=== PATIENT | female | born 1980 | race Caucasian/White ===

== ENCOUNTER 2019-09-15 13:16 | Emergency (ER) | payer SELFPAY ==
[2019-09-15 13:32] VITALS: BP 113/67; PULSE 78; RESP 16; TEMP 36.6; O2SAT 98
--- NOTE | 2019-09-15 14:08 | ED.FEMALEGU ---
HPI - Female Genitourinary General Chief complaint: Urogenital-Female Stated complaint: UTI Time Seen by Provider: 09/15/19 14:09 Source: patient and RN notes reviewed Mode of arrival: ambulatory Limitations: no limitations History of Present Illness HPI Narrative: 39-year-old female who presents to [facility] care with complaints of 2-day duration of urinary pain and frequency with pressure to perineum area. Patient also states that she has dental pain to lower right gum #27 tooth with all remaining teeth in lower gums noted to be dark with decay. Patient states that she has had a history of UTI's in the past, denies any CVA tenderness, no fevers, chills, or sweats, no nausea or vomiting or any acute abdominal pain.Patient denies any vaginal discharge or itching, has had tubal ligation. Patient states that she recently got upper dentures that she paid martinez for and states that she is unable to get into dentist for 1 month. MD elicited complaint: dysuria, UTI and other (perineal discomfort, also complaints of dental pain to right lower #27 tooth ) Pertinent past history: recurrent UTIs and other (dental caries) Onset (ago): day(s) (2) Location of symptoms: perineum Severity: moderate Female Urogenital Radiation: Non-Radiating Severity scale (1-10): 5 Quality of pain: aching Consistency: constant Vaginal discharge: none Vaginal bleeding: none Urinary symptoms: Dysuria and Urgency Exacerbating factors: none Relieving factors: none Treatment prior to arrival: none Related Data Allergies Allergy/AdvReac Type Severity Reaction Status Date / Time naproxen Allergy Mild Unverified 12/05/18 22:17 Penicillins Allergy Mild SICK Verified 12/05/18 22:17 CODIENE Allergy Unknown THROAT Uncoded 05/16/15 00:18 JOSE A Review of Systems Review of Systems: All systems reviewed & are unremarkable except as noted in HPI and below Constitutional: Constitutional: Reports as per HPI and Reports no additional constitutional complaints Eyes: Eyes: Reports as per HPI and Reports no additional eye complaints ENT: Reports system reviewed and no additional complaints, except as documented and Reports as per HPI Comments: #27 dental caries and red swollen gums with dental pain Cardiovascular: Cardiovascular: Reports as per HPI and Reports no additional cardiovascular complaints Respiratory: Respiratory: Reports as per HPI and Reports no additional respiratory complaints Gastrointestinal: Gastrointestinal: Reports as per HPI and Reports no additional gastrointestinal complaints Genitourinary: Genitourinary: Reports no additional female genitourinary complaints, Reports as per HPI, Reports nocturia and Reports dysuria Comments: Denies any CVA tenderness, pain and pressure to perineal area Musculoskeletal: Musculoskeletal: Reports no additional musculoskeletal complaints and Reports as per HPI Integumentary/Breasts: Skin/Breast: Reports system reviewed and no additional complaints, except as docu and Reports as per HPI Neurologic: Reports system reviewed and no additional complaints, except as documented and Reports as per HPI Psychiatric: Psychiatric: Reports no additional psychiatric complaints, Reports as per HPI, Reports anxiety and Reports depression Endocrine: Endocrine: Reports no additional endocrine complaints and Reports as per HPI Hematologic/Lymphatic: Hematologic/Lymphatic: Reports no additional hematologic/lymphatic complaints and Reports as per HPI Allergic/Immunologic: Allergic/Immunologic: Reports no additional allergic/immunologic complaints and Reports as per HPI PMFSH Past Medical History Medical History (Updated 09/17/19 @ 10:51 by Nette Mao NP) Bipolar 1 disorder Fracture of shaft of right femur Hepatitis C Surgical History Surgical History (Updated 09/17/19 @ 10:39 by Nette Mao NP) Previous section Tubal ligation status Social History Social History (Updated 09/17/19 @ 10:40 by Nette Bianchi
== END 2019-09-15 14:32 | disposition home or self-care (01) ==
PROVIDERS: Emergency Provider Registered Nurse
DX: K04.7 Periapical abscess without sinus (principal); N39.0 Urinary tract infection, site not specified; F17.210 Nicotine dependence, cigarettes, uncomplicated; Z86.19 Personal history of other infectious and parasitic diseases
CPT/HCPCS: 81003; 87077; 87086; 87088; 87186; 99213; G0463

== ENCOUNTER 2021-01-11 13:34 | Emergency (ER) | payer OTHER, SELFPAY ==
--- NOTE | 2021-01-11 14:36 | ED.GENADULT ---
HPI - General Adult General Chief complaint: Urogenital-Female Stated complaint: uti Source: patient Mode of arrival: ambulatory Limitations: no limitations History of Present Illness HPI narrative: Patient presents for evaluation of urinary symptoms for the last day. She reports urinary frequency and pressure in vaginal region at the end of urinary stream. She denies any fever, chills, nausea, vomiting, abdominal pain, low back pain, vaginal bleeding or discharge. LMP 1 week ago. Denies any vaginal bleeding or discharge. Surgical history positive for x3 and tubal ligation. States she has a history of recurrent urinary tract infections and current symptoms are consistent with those previously experienced with urinary tract infections. History of heroin abuse, previously sober but relapsed for 1 day a week ago. Back on methadone therapy with 100mg taken daily. No additional complaints or concerns. Related Data Home Medications Medication Instructions Recorded Confirmed methadone 01/11/21 Allergies Allergy/AdvReac Type Severity Reaction Status Date / Time naproxen Allergy Mild Verified 01/11/21 14:33 Penicillins Allergy Mild SICK Verified 01/11/21 14:33 CODIENE Allergy Unknown THROAT Uncoded 01/11/21 14:33 JOSE A Review of Systems Review of Systems: Narrative: CONSTITUTIONAL: Denies fever, chills, or sweats. EYES: Denies visual changes, redness, or discharge. ENT: Denies rhinorrhea, congestion, sore throat, or otalgia. CARDIOVASCULAR: Denies chest pain, palpitations, or edema. RESPIRATORY: Denies cough or dyspnea. GASTROINTESTINAL: Denies abdominal pain, nausea, vomiting, or diarrhea. GENITOURINARY: Reports urinary frequency and vaginal pressure at the end of urinary stream. Denies dysuria, hesitancy, hematuria SKIN: Denies rash or itching. MUSCULOSKELETAL: Denies back pain, joint pain, or myalgia. NEUROLOGIC: Denies headache, numbness, dizziness, or weakness. PSYCHIATRIC: Denies anxiety or depression. [facility] Past Medical History Medical History Bipolar 1 disorder Fracture of shaft of right femur Hepatitis C Heroin abuse Surgical History Surgical History Previous section Tubal ligation status Family History Family History Mother Unknown family medical history Social History Social History Smoking packs per day: 1 Smoking cigarettes per day: 20.0 Smoking status: Current every day smoker Tobacco type: cigarettes Alcohol intake: current Alcohol use details: socially Substance use: former Substance use type: marijuana and heroin Gender identity (if verbalized by the patient): Female Spiritual care concerns: No Exam Narrative: Exam Narrative: GENERAL: Well-appearing, well-nourished, and in no acute distress. HEAD: Normocephalic, atraumatic. EYES: PERRLA and EOMI. ENT: Nares clear, no rhinorrhea or epistaxis. Mucous membranes moist. Oropharynx without tonsillar hypertrophy exudate or other lesions. Bilateral TMs pearly woo nonbulging NECK: Supple. No adenopathy or masses. No carotid bruits or JVD CHEST: Clear to auscultation. No respiratory distress. No wheezes rales or rhonchi HEART: Regular rate and rhythm. No murmur heard. Normal peripheral pulses. ABDOMEN: Soft, nontender, nondistended, normal active bowel sounds. EXTREMITIES: Normal range of motion. No edema. SKIN: Warm, dry, no rash. NEURO: No focal deficits. Alert and oriented x3. PSYCH: Normal mood and affect. Course Course Emergency Course: This is a 40-year-old female who presents with 1 day history of urinary symptoms. not performed as she has a hx of tubal ligation. Urine positive for leukocytes. Will dc with bactrim. Advised close fol
[2021-01-11 14:39] VITALS: BP 108/76; PULSE 71; RESP 16; TEMP 36.1; O2SAT 97
== END 2021-01-11 14:50 | disposition home or self-care (01) ==
PROVIDERS: Emergency Provider Nurse Practitioner
DX: N30.00 Acute cystitis without hematuria (principal); F17.210 Nicotine dependence, cigarettes, uncomplicated; Z86.19 Personal history of other infectious and parasitic diseases
CPT/HCPCS: 81003; 87077; 87086; 87088; 87186; 99213; G0463

== ENCOUNTER 2021-03-01 08:27 | Emergency (ER) | payer OTHER, SELFPAY ==
--- NOTE | ~2021-03-01 | XR_ITS ---
. EXAMINATION: XR chest 2V EXAM DATE: 03/01/2021 08:52 INDICATION: Productive cough x 4 days smoker. TECHNIQUE: Frontal and lateral projections of the chest obtained and reviewed. There is no prior carlos dy for comparison. FINDINGS: Small amount of ill-defined lingular airspace disease identified on frontal and lateral pro jections, could be developing pneumonia. Although airspace disease is most consistent with pneumonia, a followup chest x-ray in 3-4 weeks, and to resolution, should be obtained to exclude possibility of underlying cancer. Lungs have mild to moderate hyperinflation. There is no pneumothorax suspected. T here are no pleural effusions. Cardiomediastinal silhouette is normal. There are no osseous abnormali ties identified. IMPRESSION: Small amount of left basilar airspace disease probably developing pneumonia but follow-up recommendation above. Reviewed, dictated and finalized at location B. IMPRESSION: Small amount of left basilar airspace disease probably developing p neumonia but follow-up recommendation above.
[2021-03-01 08:36] VITALS: BP 110/77; PULSE 83; RESP 16; TEMP 36.3; O2SAT 98
--- NOTE | 2021-03-01 08:37 | ED.URI ---
HPI - URI/Sore Throat General Chief Complaint: Upper Respiratory Infection Stated Complaint: Cough,Congestion Time Seen by Provider: 03/01/21 08:37 Source: patient and RN notes reviewed Mode of arrival: ambulatory Limitations: no limitations History of Present Illness HPI Narrative: 40-year-old female presents to the [facility] with complaints of a cough for the last 4 days. Patient appears acutely ill. Had tried some [id number] products with no relief. Patient denies fevers however she is complaining of some productive cough, green. Shortness of breath. Denies chest pain. Related Data Allergies Allergy/AdvReac Type Severity Reaction Status Date / Time naproxen Allergy Mild Rash Verified 03/01/21 08:45 Penicillins Allergy Mild Rash Verified 03/01/21 08:45 CODIENE Allergy Unknown THROAT Uncoded 01/11/21 14:33 JOSE A Review of Systems Review of Systems: All systems reviewed & are unremarkable except as noted in HPI and below Constitutional: Constitutional: Reports no additional constitutional complaints Eyes: Eyes: Reports no additional eye complaints ENT: Reports as per HPI, Reports nasal congestion and Denies sore throat Cardiovascular: Cardiovascular: Reports no additional cardiovascular complaints and Denies chest pain Respiratory: Respiratory: Reports as per HPI, Reports chest congestion, Reports dyspnea and Reports wheezing Gastrointestinal: Gastrointestinal: Reports no additional gastrointestinal complaints, Denies abdominal pain, Denies nausea and Denies vomiting Musculoskeletal: Musculoskeletal: Reports no additional musculoskeletal complaints Integumentary/Breasts: Skin/Breast: Reports system reviewed and no additional complaints, except as docu Neurologic: Reports system reviewed and no additional complaints, except as documented Allergic/Immunologic: Allergic/Immunologic: Reports no additional allergic/immunologic complaints, Denies lip swelling, Denies throat swelling and Denies tongue swelling PMFSH Past Medical History Medical History Bipolar 1 disorder Fracture of shaft of right femur Hepatitis C Heroin abuse Surgical History Surgical History Previous section Tubal ligation status Family History Family History Mother Unknown family medical history Social History Social History Smoking packs per day: 1 Smoking cigarettes per day: 20.0 Smoking status: Current every day smoker Tobacco type: cigarettes Alcohol intake: current Alcohol use details: socially Substance use: former Substance use type: marijuana and heroin Gender identity (if verbalized by the patient): Female Spiritual care concerns: No Comments At the time of my signature, I reviewed and agree with the nursing past medical, surgical, social, and family history. There is no relevant family history pertinent to the patient complaint. Exam Const: General: alert and ill appearing acutely Nutritional Appearance: thin Orientation/consciousness: patient oriented x3 Limitations: no limitations HENMT: Head: normal to inspection Ears: hearing grossly normal bilaterally, external ears normal, TM's normal bilaterally and EAC's normal General nose exam: Abnormal mucous membranes and turbinates present boggy and erythematous and Nasal discharge present mucoid Face and sinus: normal facial exam Mouth: Yes lip normal and Yes tongue normal Teeth and gingiva: gingiva abnormal receding and poor dentition Throat: posterior oropharynx normal, uvula midline and postnasal drainage Eyes: Conjunctivae: conjunctivae normal Pupils: Equal, round and reactive pupils present Neck: Neck: normal visual inspection, no lymphadenopathy and no meningeal signs Chest: Chest palpation & inspection: normal inspection of the
[2021-03-01 08:45] VITALS: BP 110/77; PULSE 83; RESP 16; TEMP 36.3; O2SAT 98
[2021-03-01] MEDS: ALBUTEROL SULFATE NEB 2.5 MG/3 ML INH INHALATION (08:53)
[2021-03-01] MEDS: IPRATROPIUM BR 0.02% INH SOLN 0.5 MG/2.5 ML VIAL INHALATION (08:54)
--- NOTE | 2021-03-01 09:20 | PC.NURSE ---
at 0910 was continuing resp tx. stated already feeling better.
--- NOTE | 2021-03-01 09:37 | PC.NURSE ---
0934 braille teacher in to reassess and discuss results.
--- NOTE | 2021-03-01 09:38 | PC.NURSE ---
0929 resp tx completed and resting laying back and stated is feeling better.
[2021-03-01 09:47] VITALS: PULSE 77; RESP 18; O2SAT 98
== END 2021-03-01 09:47 | disposition home or self-care (01) ==
PROVIDERS: Emergency Provider Nurse Practitioner
DX: J18.1 Lobar pneumonia, unspecified organism (principal); F17.210 Nicotine dependence, cigarettes, uncomplicated
CPT/HCPCS: 71046; 94640; 99213; G0463

== ENCOUNTER 2021-04-03 04:56 | Emergency (ER) | payer OTHER, SELFPAY ==
[2021-04-03 04:59] VITALS: BP 138/103; PULSE 101; RESP 20; TEMP 37.1; O2SAT 99
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
--- NOTE | 2021-04-03 05:36 | PC.NURSE ---
Patient seen leaving department with her visitor. Patient's belongings not in room and gown on stretcher. Patient left ED and seen getting into a car with her visitor at 0538.
== END 2021-04-03 05:40 | disposition left against medical advice (07) ==
LOC: ANHED 05:20
PROVIDERS: Emergency Provider Emergency Medicine
DX: T14.90XA Injury, unspecified, initial encounter (principal); Y04.2XXA Assault by strike against or bumped into by another person, initial encounter; Y03.0XXA Assault by being hit or run over by motor vehicle, initial encounter
CPT/HCPCS: 99282

== ENCOUNTER 2021-04-09 13:54 | Emergency (ER) | payer OTHER, SELFPAY ==
--- NOTE | ~2021-04-09 | XR_ITS ---
EXAMINATION: XR cervical spine 4-5V, XR lumbar spine 2-3V, XR thoracic spine 3V DATE: 04/09/2021 15:44 INDICATION: Neck pain TECHNIQUE: 1. AP, lateral, lateral swimmers and odontoid views of the cervical spine were obtained. 2. AP, lateral and lateral swimmers views of the thoracic spine were obtained. 3. AP, lateral and cone-down lateral lumbosacral views of the lumbar spine were obtained. COMPARISON: None FINDINGS: Cervical spine: Mild lower cervical dextrocurvature. Straightening of the normal cervical lordosis which could be pos itional or due to muscle spasm. No spondylolisthesis or facet subluxation. Dens is intact with normal atlantoaxial interval. Vertebral body heights are normal. Mild disc height loss at C5-C6 with mild r ight-sided and moderate left-sided uncovertebral osteoarthritis. Remaining cervical disc spaces are r elatively preserved with additional scattered uncovertebral osteoarthritis. There is also bilateral m ild multilevel cervical facet osteoarthritis. No fracture identified. Prevertebral soft tissues are n ormal. Thoracic spine: 13 degree levoscoliosis measured between T3 and T5. Sagittal alignment is normal. Vertebral body heig hts are normal. Moderate disc height loss with mild degenerative endplate changes at T3-T4 through T5 -T6 and at T7-T8. Mild disc height loss at the remaining thoracic levels. No fracture identified. Par avertebral soft tissues and visualized lungs are unremarkable. Heart size is normal. Lumbar spine: Alignment is normal. Vertebral body heights are normal. Mild disc height loss at L5-S1. Sacral arches are intact. No fractures identified. Mild right sacroiliac osteoarthritis. IMPRESSION: 1. No evident acute osseous abnormality. 2. Mild upper thoracic levoscoliosis with mild to moderate thoracic spondylosis. 3. Mild cervical and mild lumbar spondylosis. Reviewed, dictated and finalized at location A. IMPRESSION: 1. No evident acute osseous abnormality. 2. Mild upper thoracic levoscoliosis with mild to moderate thoracic spondylosis . 3. Mild cervical and mild lumbar spondylosis. IMPRESSION: 1. No evident acute osseous abnormality. 2. Mild upper thoracic levoscoliosis with mild to moderate thoracic spondylosis . 3. Mild cervical and mild lumbar spondylosis.
[2021-04-09 14:10] VITALS: BP 109/77; PULSE 90; RESP 16; TEMP 36.2; O2SAT 100
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
== END 2021-04-09 16:48 | disposition home or self-care (01) ==
PROVIDERS: Emergency Provider Nurse Practitioner
DX: S16.1XXA Strain of muscle, fascia and tendon at neck level, initial encounter (principal); V49.9XXA Car occupant (driver) (passenger) injured in unspecified traffic accident, initial encounter; F17.210 Nicotine dependence, cigarettes, uncomplicated; Z86.19 Personal history of other infectious and parasitic diseases
CPT/HCPCS: 72050; 72072; 72100; 99214; G0463

== ENCOUNTER 2022-02-02 21:07 | Inpatient (IN) | payer OTHER, SELFPAY ==
--- NOTE | ~2022-02-02 | CT_ITS ---
EXAMINATION: CT LE LT wo con DATE: 02/03/2022 04:02 INDICATION: Left thigh swelling and numbness and pain. TECHNIQUE: Computed tomography (CT) of the left thigh was performed without intravenous contrast. Aut omated exposure control and iterative reconstruction technique were employed. The dose-length product was 1244.33 mGy-cm. COMPARISON: Left femur radiographs 02/02/2022 FINDINGS: Bone alignment is normal. No fracture. There is severe lower lumbar spondylosis. There is m oderate left hip osteoarthritis. There is fat stranding in the retroperitoneum and extraperitoneal pe lvis. There is low-attenuation in the left hip adductor muscles and gluteal muscles. There is subcuta neous edema and intramuscular edema in left thigh. IMPRESSION: 1. Low-attenuation in the left hip adductor muscles and gluteal muscles, consistent with rhabdomyolys is versus myositis. 2. Fat stranding in the retroperitoneum and extraperitoneal pelvis, consistent with edema versus infl ammation. Reviewed, dictated and finalized at location A. IMPRESSION: 1. Low-attenuation in the left hip adductor muscles and gluteal muscles, consis tent with rhabdomyolysis versus myositis. 2. Fat stranding in the retroperitoneum and extraperitoneal pelvis, consistent with edema versus inflammation.
--- NOTE | ~2022-02-02 | US_ITS ---
EXAMINATION: US venous doppler [facility] DATE: 02/03/2022 08:50 INDICATION: Left thigh swelling. TECHNIQUE: Grayscale ultrasound images without and with compression and Doppler ultrasound images of the left lower extremity veins were obtained. COMPARISON: None. FINDINGS: The visualized portions of left common femoral vein, profunda (deep) femoral vein, femoral vein, popl iteal vein, peroneal veins, posterior tibial veins, and greater saphenous vein outflow are patent. IMPRESSION: 1. No deep venous thrombosis. Reviewed, dictated and finalized at location A.
--- NOTE | ~2022-02-02 | US_ITS ---
US renal BI 02/03/2022 10:15 Procedure: Realtime transabdominal ultrasound of the kidneys and bladder. Indication: Acute renal insufficiency Comparison: No prior studies for comparison. Findings: Renal echotexture is normal bilaterally without hydronephrosis, contour deforming mass or r enal calculus. The right kidney measures 11 cm and left kidney measures 11.7 cm. Bladder is not well distended for evaluation. Impression: 1: Unremarkable renal ultrasound. No stones, masses or hydronephrosis. Reviewed, dictated and finalized at location B. Impression: 1: Unremarkable renal ultrasound. No stones, masses or hydronephrosis.
--- NOTE | ~2022-02-02 | XR_ITS ---
EXAMINATION: XR femur LT min 2V DATE: 02/02/2022 23:15 INDICATION: Left thigh edema. TECHNIQUE: 2 views of left femur on 4 radiographs were obtained. COMPARISON: None. FINDINGS: Bone alignment is normal. No fracture. There is moderate left hip osteoarthritis. IMPRESSION: 1. Moderate left hip osteoarthritis. Reviewed, dictated and finalized at location A.
--- NOTE | ~2022-02-02 | CT_ITS ---
EXAMINATION: CT femur LT wo con DATE: 02/06/2022 13:25 INDICATION: Left-sided presenting with worsening left thigh pain TECHNIQUE: High resolution computed tomography (CT) of the left thigh was performed without intraveno us contrast. Additional sagittal and coronal reconstructions were performed. Automated exposure contr ol and iterative reconstruction technique were employed. The dose-length product was 985.68 mGy-cm. COMPARISON: 02/03/2022 FINDINGS: Bone alignment is normal. No fracture. Severe spondylosis at the lumbosacral junction. Mild left hip osteoarthritis with no hip joint effusion. No significant change in extent of regions of decreased at tenuation in the abductor th and gluteal musculature about the left hip there is a thick consistent w ith rhabdomyolysis versus myositis. Also without significant interval changes stranding in the subcut aneous and intramuscular fat of the left thigh. Interval decrease in the amount of retroperitoneal st randing with presacral predominance. No evident soft tissue gas. IMPRESSION: 1. No interval change in right-sided geographic regions of decreased attenuation and multiple left hi p abductor and gluteal muscles most consistent with rhabdomyolysis versus myositis. Reviewed, dictated and finalized at location A. IMPRESSION: 1. No interval change in right-sided geographic regions of decreased attenuatio n and multiple left hip abductor and gluteal muscles most consistent with rhabd omyolysis versus myositis.
[2022-02-02 21:58] VITALS: BP 122/82; PULSE 84; RESP 18; TEMP 36.6; O2SAT 97
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
--- NOTE | 2022-02-02 23:45 | PC.NURSE ---
Pt has a hx of IV drug use. This RN, shipping technician Daina, and shipping technician Katie attempted blood draw with no success. Phlebotomy called at this time.
[2022-02-03] VITALS (8 sets, daily range): BP systolic 118–149; BP diastolic 75–98; PULSE 72–80; RESP 14–19; TEMP 36.2–36.6; O2SAT 100
--- NOTE | 2022-02-03 00:12 | PC.NURSE ---
Belongings at bedside. enava tech
[2022-02-03 00:37] LABS: Anion Gap 12 mmol/L (8-16); Blood Urea Nitrogen 91 mg/dL (7-17); CRP 1.7 mg/dL (<1.0); Calcium 8.9 mg/dL (8.4-10.2); Carbon Dioxide 23 mmol/L (22-30); Chloride 93 mmol/L (98-107); Estimated CRCL calculation 8 ml/min; Estimated Glomerular Filt Rate 5; Glucose 137 mg/dL (65-110); Potassium 3.7 mmol/L (3.4-5.0); Sodium 128 mmol/L (137-145)
[2022-02-03 00:42] LABS: Prothrombin Time 13.1 Seconds (11.1-14.7)
[2022-02-03 00:55] LABS: Basophils Absolute Auto 0.1 K/mm3 (0.0-0.1); Basophils Percent Auto 0.5 % (0.2-1.2); Eosinophils Absolute Auto 0.2 K/mm3 (0-0.3); Eosinophils Percent Auto 1.3 % (0-4.4); Hematocrit 44.3 % (37.0-47.0); Hemoglobin 15.7 g/dL (12.0-15.0); Immature Granulocyte Absolute 0.09 K/mm3 (0.00-0.031); Immature Granulocyte Percent A 0.8 % (0-0.5); Lymphocytes Absolute Auto 1.64 K/mm3 (0.9-3.2); Lymphocytes Percent Auto 14.3 % (18.3-44.2); Mean Corpuscular HGB Conc 35.4 g/dl (32-36); Mean Corpuscular Hemoglobin 32.3 pg (26-34); Mean Corpuscular Volume 91.2 fl (80-100); Mean Platelet Volume 10.6 fl (7.4-10.4); Monocytes Percent Auto 8.6 % (2.6-8.5); Neutrophils Absolute Auto 8.5 K/mm3 (1.3-6.7); Neutrophils Percent Auto 74.5 % (45.5-73.1); Platelet Count Result 327 k/mm3 (150-375); Red Blood Count 4.86 M/mm3 (4.2-5.4); Red Cell Distribution Width 12.4 % (11.5-14.5); White Blood Count 11.5 K/mm3 (4.5-10.0)
[2022-02-03 00:57] LABS: D Dimer 6.47 ug/mL (<0.48)
--- NOTE | 2022-02-03 01:11 | PC.NURSE ---
EDP Sidney at bedside for IV placement
[2022-02-03 01:23] LABS: Appearance Urine Clear (Clear); Bilirubin Urine Negative (Negative); Blood Urine 2+ (Negative); Color Urine Yellow (Yellow); Glucose Urine UA Negative (Negative); Ketones Urine Negative (Negative); Leukocyte Esterase Ur Trace LEU/UL (Negative); Nitrate Urine Negative (Negative); Protein Urine Trace mg/dL (Negative); Specific Grav Ur 1.015 (1.001-1.035); Urobilinogen Urine 0.2 mg/dL (<2.0)
[2022-02-03 01:25] LABS: Alanine Aminotransferase 118 U/L (6-35); Albumin Level 3.8 g/dL (3.5-5.1); Alkaline Phosphatase 26 U/L (38-126); Aspartate Amino Transferase 162 U/L (14-36); Bilirubin,Total 0.5 mg/dL (0.2-1.3)
[2022-02-03 01:28] LABS: Bacteria Urine Trace /hpf; Mucus Urine Rare /lpf; Squamous Epithelial Cell Urine Few /hpf (Few)
[2022-02-03 01:29] LABS: Add Urine Microscopic? YES
[2022-02-03 01:36] LABS: Creatine Kinase 2494 U/L (30-135)
[2022-02-03 01:37] LABS: Barbiturate Screen Urine Negative (Negative); Benzodiazepines Screen Urine Negative (Negative)
[2022-02-03 02:05] LABS: Amphetamine Screen Urine Positive (Negative); Cannabinoid Screen Urine Negative (Negative); Cocaine Screen Urine Negative (Negative); Methadone Screen Urine Negative (Negative); Opiate Screen Urine Negative (Negative); Phencyclidine Screen Urine Negative (Negative)
[2022-02-03] MEDS: SODIUM CHLORIDE 0.9% IV 1,000 ML 999 ML IV CONT (02:23)
[2022-02-03] MEDS: ENOXAPARIN 80 MG/0.8 ML SYRINGE 70 MG SUB-Q (03:36)
[2022-02-03] MEDS: SODIUM CHLORIDE 0.9% IV 1,000 ML 500 ML IV CONT (03:39)
--- NOTE | 2022-02-03 03:47 | PC.NURSE ---
Pt to Ct at this time
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
--- NOTE | 2022-02-03 05:00 | ADMGEN ---
0435 This patient, Narciso Barnes, was admitted to [address] [facility] Surg Room 333-01. Patient/family oriented to hospital policies and general routines including ID bracelet, bed and alarms, visiting hours, pain management, procedures, bathroom and other care routines, personal items, smoking policy, room service/diet, and visiting hours. Information on how to activate the Rapid Response Team has been discussed. Patient/Family are encouraged to report perceived risks to care and to ask questions if they do not understand what they are told or what they should do.
[2022-02-03 08:06] LABS: Hematocrit 37.8 % (37.0-47.0); Hemoglobin 12.8 g/dL (12.0-15.0); Mean Corpuscular HGB Conc 33.9 g/dl (32-36); Mean Corpuscular Hemoglobin 31.8 pg (26-34); Mean Corpuscular Volume 93.8 fl (80-100); Mean Platelet Volume 9.9 fl (7.4-10.4); Platelet Count Result 277 k/mm3 (150-375); Red Blood Count 4.03 M/mm3 (4.2-5.4); Red Cell Distribution Width 12.7 % (11.5-14.5); White Blood Count 9.7 K/mm3 (4.5-10.0)
[2022-02-03 08:16] LABS: Alanine Aminotransferase 81 U/L (6-35); Albumin Level 2.9 g/dL (3.5-5.1); Alkaline Phosphatase 22 U/L (38-126); Anion Gap 7 mmol/L (8-16); Aspartate Amino Transferase 106 U/L (14-36); Bilirubin,Total 0.3 mg/dL (0.2-1.3); Blood Urea Nitrogen 81 mg/dL (7-17); Calcium 7.8 mg/dL (8.4-10.2); Carbon Dioxide 23 mmol/L (22-30); Chloride 101 mmol/L (98-107); Creatine Kinase 1404 U/L (30-135); Estimated CRCL calculation 9 ml/min; Estimated Glomerular Filt Rate 6; Glucose 105 mg/dL (65-110); Potassium 3.6 mmol/L (3.4-5.0); Sodium 131 mmol/L (137-145)
[2022-02-03] MEDS: BACLOFEN 10 MG TABLET PO ×2 (09:06→18:28)
[2022-02-03] MEDS: SODIUM CHLORIDE 0.9% IV 1,000 ML 150 ML IV CONT (09:06)
--- NOTE | 2022-02-03 12:21 | PM.CNNEP ---
Assessment and Plan Additional Plan 1. The patient has acute kidney injury. Her CPK was mildly elevated at 2494 yesterday but is down to 1404 today. Rhabdomyolysis is always a possibility. Perhaps she was passed out for a while and developed some muscle trauma. This may have peaked in the past and then ran its course and is decreasing now. She does have 2+ blood in the urine with very few red cells consistent with pigmenturia. Since there is still pigment in the urine, and the urine pH is only 5, I will give her bicarbonate in her IV fluids. She does have the swollen thigh. So compartment syndrome is a possibility but her CPK is lower so I doubt this. I will have surgery take a look at her just in case. Dehydration is a possibility as well. She is getting IV fluids. ATN is a possibility. Perhaps when she overdosed on the ketamine she had low blood pressure for a while leading to under perfusion and ATN. infection is a possibility. She does have some white cells in the urine. Her cultures are being processed. She has no fever or white count. 2. The patient has a swollen left thigh. Venous Dopplers negative. Consider compartment syndrome? Will have surgery see 3. Recreational drug use. Hopefully she will be able to stop again. History of Present Illness Reason for Consult Consult date: 02/03/22 Chief Complaint Chief complaint: Acute kidney failure, rhabdomyolysis History of Present Illness Narrative: Magy is a very pleasant 41-year-old lady who has chronic narcotic abuse. She had been clean for about 4 years but then in the last couple of weeks had a relapse. First she tried fentanyl. She took 1/4 of a pill and passed out. She was at a friend's house who happened to have Narcan and she received 3 injections of Narcan and was finally aroused. She stopped using Fentanyl at that point because she was scared of it but then started using meth. She had this a few times since the Fentanyl. About a week ago the patient developed swelling in her left thigh. There is no swelling in the ankle. This swelling gradually got worse over the last week. There is no bruising. She does not remember falling but admittedly she was under the effect of the recreational drug so it is not certain whether or not there was any trauma. She is able to walk but walks with a limp because of the pain in the thigh. She had some nausea and vomiting over the last week and also had some diarrhea. Had no fever. She does not take any prescription medications. She told me she was not taking any Advil Aleve ibuprofen or Motrin but at looks like she did have some ibuprofen at home. She says she is urinating normally. Her urine is clear/mildly yellow. No red urine and no dark brown urine. No pain with urination or hesitancy or slow stream. She has not been on antibiotics lately. Review of Systems Constitutional: Constitutional: Reports no additional constitutional complaints Eyes: Eyes: Reports no additional eye complaints ENT: Reports system reviewed and no additional complaints, except as documented Cardiovascular: Cardiovascular: Reports no additional cardiovascular complaints Respiratory: Respiratory: Reports no additional respiratory complaints Gastrointestinal: Gastrointestinal: Reports no additional gastrointestinal complaints Genitourinary: Genitourinary: Reports no additional female genitourinary complaints Musculoskeletal: Musculoskeletal: Reports no additional musculoskeletal complaints Integumentary/Breasts: Skin/Breast: Reports system reviewed and no additional complaints, except as docu Neurologic: Reports system reviewed and no additional complaints, except as documented Psychiatric: Psychiatric: Reports no additional psychiatric complaints Endocrine: Endocrine: Reports no additional endocrine complaints [facility] Past Medical History Medical History (Reviewed 02/03/22 @ 12:25 by Yaakov Hayes
--- NOTE | 2022-02-03 13:05 | PCCCNOTE ---
On 02/03/22, the student, [Beti Tovar], provided care and completed [facility] documentation on this patient. I have reviewed the student's documentation and agree with the findings.
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
[2022-02-03] MEDS: SODIUM BICARBONATE 8.4% 150 MEQ in DEXTROSE 5% 1,000 ML 950 ML 100 MEQ IV CONT (14:26)
[2022-02-04] MEDS: SODIUM BICARBONATE 8.4% 150 MEQ in DEXTROSE 5% 1,000 ML 950 ML 100 MEQ IV CONT ×2 (01:19→12:15)
[2022-02-04 01:37] LABS: Total Protein Urine Random 15 mg/dL; Ur Ttl Prot Creatinine Ratio 0.33 mg/mg (0-0.20)
[2022-02-04 01:47] LABS: Sodium Urine Random 47 meq/L
[2022-02-04 05:26] VITALS: BP 131/80; PULSE 75; RESP 16; TEMP 36.5; O2SAT 96
[2022-02-04 06:18] LABS: Basophils Percent Auto 0.5 % (0.2-1.2); Eosinophils Absolute Auto 0.1 K/mm3 (0-0.3); Eosinophils Percent Auto 1.3 % (0-4.4); Hematocrit 33.7 % (37.0-47.0); Hemoglobin 11.8 g/dL (12.0-15.0); Immature Granulocyte Absolute 0.07 K/mm3 (0.00-0.031); Immature Granulocyte Percent A 0.8 % (0-0.5); Lymphocytes Absolute Auto 1.72 K/mm3 (0.9-3.2); Lymphocytes Percent Auto 20.1 % (18.3-44.2); Mean Corpuscular Hemoglobin 31.8 pg (26-34); Mean Corpuscular Volume 90.8 fl (80-100); Mean Platelet Volume 10.3 fl (7.4-10.4); Monocytes Absolute Auto 0.9 K/mm3 (0.1-0.6); Monocytes Percent Auto 9.9 % (2.6-8.5); Neutrophils Absolute Auto 5.8 K/mm3 (1.3-6.7); Neutrophils Percent Auto 67.4 % (45.5-73.1); Platelet Count Result 266 k/mm3 (150-375); Red Blood Count 3.71 M/mm3 (4.2-5.4); Red Cell Distribution Width 12.5 % (11.5-14.5); White Blood Count 8.6 K/mm3 (4.5-10.0)
[2022-02-04 06:27] LABS: Albumin Level 2.9 g/dL (3.5-5.1); Anion Gap 6 mmol/L (8-16); Blood Urea Nitrogen 83 mg/dL (7-17); Carbon Dioxide 30 mmol/L (22-30); Chloride 99 mmol/L (98-107); Creatine Kinase 809 U/L (30-135); Estimated CRCL calculation 10 ml/min; Estimated Glomerular Filt Rate 7; Glucose 111 mg/dL (65-110); Phosphorus 4.8 mg/dL (2.5-4.5); Potassium 3.4 mmol/L (3.4-5.0); Sodium 135 mmol/L (137-145)
[2022-02-04 08:00] VITALS: PULSE 75; RESP 16; O2SAT 96
[2022-02-04] MEDS: ENOXAPARIN 30 MG/0.3 ML SYRINGE SUB-Q (09:40)
[2022-02-04] MEDS: BACLOFEN 10 MG TABLET PO ×2 (09:40→17:58)
--- NOTE | 2022-02-04 11:43 | PM.IMPN ---
Progress Note: A&P Assessment and Plan (1) Rhabdomyolysis: Qualifiers: Rhabdomyolysis type: non-traumatic Qualified Code(s): M62.82 - Rhabdomyolysis Code(s): M62.82 - Rhabdomyolysis Status: Acute Assessment and Plan: CK improved significantly from 1400-->800 (2) Acute kidney failure: Qualifiers: Acute renal failure type: unspecified Qualified Code(s): N17.9 - Acute kidney failure, unspecified Code(s): N17.9 - Acute kidney failure, unspecified Status: Acute Assessment and Plan: Creatinine at admission was 7.9, down to 6.6 today, sodium also improved indicating patient was in a hypovolemic state (3) Amphetamine abuse: Code(s): F15.10 - Other stimulant abuse, uncomplicated Status: Acute Assessment and Plan: Long discussion regarding rehab and discontinuing polysubstance abuse (4) Elevated d-dimer: Code(s): R79.89 - Other specified abnormal findings of blood chemistry Status: Acute Assessment and Plan: Likely secondary to the rhabdomyolysis, venous Dopplers were negative (5) Left thigh pain: Code(s): M79.652 - Pain in left thigh Status: Acute Assessment and Plan: Secondary to myositis versus rhabdomyolysis, appreciate Orthopedic surgery consultation, they have signed off, no compartment syndrome noted Subjective Date/time seen: 02/04/22 11:43 Interval history: Patient resting comfortably in bed, still complaining of significant left thigh pain and swelling. She denies any trauma to this leg. She states the swelling and pain seem little worse than when she came in yesterday. She denies any fevers or chills overnight events. She denies chest pain shortness a breath. No nausea vomiting or diarrhea. Review of Systems Review of Systems: Twelve point review of systems was reviewed and is negative except as noted in the HPI Exam Narrative: Weight 68.1 kg BMI 23.5 Const: Other: Appears older than stated age, disheveled, no acute distress, well-developed well-nourished HENMT: Other: Head is normocephalic atraumatic, pupils are equal and reactive, edentulous in the upper jaw, few remaining teeth that are black and broken off at the gumline in the lower jaw Eyes: Other: Pupils are equal and reactive, no scleral icterus, no conjunctival pallor Neck: Other: No anterior cervical or submandibular lymphadenopathy, no thyromegaly Chest: Other: No tenderness to palpation, equal expansion Resp: Other: Clear to auscultation bilaterally, no increased work of breathing Cardio: Other: Regular rate, regular rhythm, 2+ bilateral radial pedal pulses GI: Other: Soft, nontender, nondistended, positive bowel sounds, no organomegaly : Other: Normal external genitalia, tissue fullness and edema in the left groin Skin: Other: Generalized pallor, non jaundice, numerous tattoos across arms chest and down the right lateral thigh and leg Neuro: Other: Alert oriented, speech is clear, no facial asymmetry, no gross motor deficits noted on limited exam, decreased sensation over the anterior and medial left thigh down to about the level of the knee extending to the mid axillary line laterally Extrem: Other: Weakness on hip flexor on the left, generalized edema of the left anterior medial thigh with [id number] tenderness palpation of the medial thigh, no associated erythema or induration, no pitting edema of the lower extremity, no calf tenderness Psych: Other: Appropriate mood affect, pleasant and cooperative, judgment insight poor Objective Data Vital Signs Vital Signs: Vital Signs - 24 hr 02/03/22 14:00 02/03/22 22:00 02/04/22 05:26 Temperature 97.9 F 97.2 F L 97.7 F Pulse Rate 73 72 75 Respiratory Rate 19 16 16 Blood Pressure 120/77 118/75 131/80 Pulse Oximetry 100 100 96 Intake/Output Intake/Output: Intake & Output 02/01/22 02/02/22 02/03/22 02/04/22 23:59 23:59 23:59
--- NOTE | 2022-02-04 12:14 | PM.PNNEP ---
Progress Note: A&P Additional Plan 1. The patient has acute kidney injury. Urine electrolytes are non pre renal but she had already received lots of IV fluids before this was done. CK is down to 809. Urine culture is negative thanks to Dr. Briggs for evaluating her thigh. No sign of compartment syndrome. Her creatinine is improving with IV fluids. Most likely her renal insufficiency is due to dehydration and ATN. 2. The patient has a swollen left thigh. Venous Dopplers negative. I will let hospitalist proceed with this evaluation. 3. Recreational drug use. Hopefully she will be able to stop again. Subjective Date/time seen: 02/04/22 12:14 Interval history: [place] is feeling a little bit better today. Her left thigh still hurts. Review of Systems Cardiovascular: Cardiovascular: Reports no additional cardiovascular complaints Respiratory: Respiratory: Reports no additional respiratory complaints Gastrointestinal: Gastrointestinal: Reports no additional gastrointestinal complaints Genitourinary: Genitourinary: Reports no additional female genitourinary complaints Exam Narrative: WDWN in NAD skin no rash head ncat lungs clear cor reg no rub abd BS+ nontender and soft ext no edema Except some residual swelling in her left thigh. Objective Data Vital Signs Vital Signs: Vital Signs - 24 hr 02/03/22 14:00 02/03/22 22:00 02/04/22 05:26 Temperature 36.6 C 36.2 C L 36.5 C Pulse Rate 73 72 75 Respiratory Rate 19 16 16 Blood Pressure 120/77 118/75 131/80 Pulse Oximetry 100 100 96 Intake/Output Intake/Output: Intake & Output 02/01/22 02/02/22 02/03/22 02/04/22 23:59 23:59 23:59 23:59 Intake Total 3280 2240 Output Total 600 2500 Balance 2680 -260 Meds/Results Medications: Active Medications Generic Name Dose Route Start Last Admin Trade Name Freq PRN Reason Stop Dose Admin Acetaminophen 650 mg 02/04/22 11:50 Acetaminophen 325 Mg Tablet PO Q6H PRN Mild Pain (1-3) or Fever Baclofen 10 mg 02/03/22 09:00 02/04/22 09:40 Baclofen 10 Mg Tablet PO 10 mg BID JOSHUA Administration Enoxaparin Sodium 30 mg 02/04/22 09:00 02/04/22 09:40 Enoxaparin 30 Mg/0.3 Ml Syringe SUB-Q 30 mg DAILY JOSHUA Administration Sodium Bicarbonate 150 meq/ 1,100 mls @ 100 mls/hr 02/03/22 13:00 02/04/22 01:19 Dextrose IV CONT 100 mls/hr .Q11H JOSHUA Administration Polyethylene Glycol 17 gm 02/05/22 09:00 Polyethylene Glycol 3350 17 Gm Powd.Pack PO QAM JOSHUA Tramadol HCl 50 mg 02/04/22 11:50 Tramadol Hcl (*Crx) 50 Mg Tablet PO Q4H PRN Pain Rated 4-6 Radiology Results: ITS Impressions Lower Extremity CT 02/03/22 06:31 IMPRESSION: 1. Low-attenuation in the left hip adductor muscles and gluteal muscles, consistent with rhabdomyolysis versus myositis. 2. Fat stranding in the retroperitoneum and extraperitoneal pelvis, consistent with edema versus inflammation. Femur X-Ray 02/03/22 06:53 IMPRESSION: 1. Moderate left hip osteoarthritis. Venous Doppler Study 02/03/22 09:14 IMPRESSION: 1. No deep venous thrombosis. Renal Ultrasound 02/03/22 10:18 Impression: 1: Unremarkable renal ultrasound. No stones, masses or hydronephrosis. Labs Labs: Laboratory Results - last 24 hr 02/03/22 02/04/22 02/04/22 07:59 01:18 06:10 WBC RBC Hgb Hct MCV MCH MCHC RDW Plt Count MPV Immature Gran % (Auto) Neut % (Auto) Lymph % (Auto) [place] % (Auto) Eos % (Auto) Baso % (Auto) Lymph # (Auto) [place] # (Auto) Eos # (Auto) Baso # (Auto) Abs Immat Gran (auto) Absolute Neuts (auto) Absolute Nucleated RBC Nucleated RBC % Sodium 135 L Potassium 3.4 Chloride 99 Carbon Dioxide 30 Anion Gap 6 L BUN 83 H Creatinine 6.60 H Estim Creat Clear Calc 10 Estimated GFR 7 L Glucose 111 H Uric A
[2022-02-04] MEDS: traMADol HCL (*CRX) 50 MG TABLET PO ×2 (12:18→21:13)
[2022-02-04 14:00] VITALS: BP 114/60; PULSE 79; RESP 20; TEMP 36.2; O2SAT 96
[2022-02-04 23:25] VITALS: BP 120/79; PULSE 62; RESP 22; TEMP 36.3; O2SAT 94
[2022-02-05] MEDS: SODIUM BICARBONATE 8.4% 150 MEQ in DEXTROSE 5% 1,000 ML 950 ML 100 MEQ IV CONT (03:19)
[2022-02-05 05:59] VITALS: BP 126/76; PULSE 64; RESP 16; TEMP 36.4; O2SAT 94
[2022-02-05 06:52] LABS: Albumin Level 3.6 g/dL (3.5-5.1); Anion Gap 6 mmol/L (8-16); Blood Urea Nitrogen 70 mg/dL (7-17); Calcium 8.6 mg/dL (8.4-10.2); Carbon Dioxide 39 mmol/L (22-30); Chloride 92 mmol/L (98-107); Estimated CRCL calculation 13 ml/min; Estimated Glomerular Filt Rate 10; Glucose 101 mg/dL (65-110); Potassium 3.5 mmol/L (3.4-5.0); Sodium 137 mmol/L (137-145)
[2022-02-05] MEDS: SODIUM CHLORIDE 0.9% IV 1,000 ML 75 ML IV CONT (09:28)
[2022-02-05] MEDS: ENOXAPARIN 30 MG/0.3 ML SYRINGE SUB-Q (09:33)
[2022-02-05] MEDS: BACLOFEN 10 MG TABLET PO ×2 (09:33→16:44)
[2022-02-05] MEDS: polyethylene glycoL 3350 17 GM POWD.PACK PO (09:33)
--- NOTE | 2022-02-05 10:27 | PM.PNNEP ---
Progress Note: A&P Additional Plan 1. The patient has acute kidney injury. Urine electrolytes are non pre renal but she had already received lots of IV fluids before this was done. CK is down to 809. Urine culture is negative thanks to Dr. Briggs for evaluating her thigh. No sign of compartment syndrome. Her creatinine is improving with IV fluids. She is eating well. Her left thigh is a little more swollen. Perhaps she we do not need to give her any more fluids. Will stop the fluids and see how things look tomorrow. 2. The patient has a swollen left thigh. Venous Dopplers negative. I will let hospitalist proceed with this evaluation. 3. Recreational drug use. Hopefully she will be able to stop again. Subjective Date/time seen: 02/05/22 10:27 Interval history: [place] is about the same. Her left thigh still has some swelling. She feels like it is a little worse. Exam Narrative: WDWN in NAD skin no rash head ncat lungs clear cor reg no rub abd BS+ nontender and soft ext trace edema in the lower extremities. A little more in her left thigh. Objective Data Vital Signs Vital Signs: Vital Signs - 24 hr 02/04/22 14:00 02/04/22 23:25 02/05/22 05:59 Temperature 36.2 C L 36.3 C L 36.4 C L Pulse Rate 79 62 64 Respiratory Rate 20 22 H 16 Blood Pressure 114/60 120/79 126/76 Pulse Oximetry 96 94 94 Intake/Output Intake/Output: Intake & Output 02/02/22 02/03/22 02/04/22 02/05/22 23:59 23:59 23:59 23:59 Intake Total 3280 5340 540 Output Total 600 3200 750 Balance 2680 2140 -210 Meds/Results Medications: Active Medications Generic Name Dose Route Start Last Admin Trade Name Freq PRN Reason Stop Dose Admin Acetaminophen 650 mg 02/04/22 11:50 Acetaminophen 325 Mg Tablet PO Q6H PRN Mild Pain (1-3) or Fever Baclofen 10 mg 02/03/22 09:00 02/05/22 09:33 Baclofen 10 Mg Tablet PO 10 mg BID JOSHUA Administration Enoxaparin Sodium 30 mg 02/04/22 09:00 02/05/22 09:33 Enoxaparin 30 Mg/0.3 Ml Syringe SUB-Q 30 mg DAILY JOSHUA Administration Sodium Chloride 1,000 mls @ 75 mls/hr 02/05/22 08:45 02/05/22 09:28 Normal Saline Iv IV CONT 75 mls/hr .[id number] JOSHUA Administration Polyethylene Glycol 17 gm 02/05/22 09:00 02/05/22 09:33 Polyethylene Glycol 3350 17 Gm Powd.Pack PO 17 gm QAM JOSHUA Administration Tramadol HCl 50 mg 02/04/22 11:50 02/04/22 21:13 Tramadol Hcl (*Crx) 50 Mg Tablet PO 50 mg Q4H PRN Administration Pain Rated 4-6 Radiology Results: ITS Impressions Lower Extremity CT 02/03/22 06:31 IMPRESSION: 1. Low-attenuation in the left hip adductor muscles and gluteal muscles, consistent with rhabdomyolysis versus myositis. 2. Fat stranding in the retroperitoneum and extraperitoneal pelvis, consistent with edema versus inflammation. Femur X-Ray 02/03/22 06:53 IMPRESSION: 1. Moderate left hip osteoarthritis. Venous Doppler Study 02/03/22 09:14 IMPRESSION: 1. No deep venous thrombosis. Renal Ultrasound 02/03/22 10:18 Impression: 1: Unremarkable renal ultrasound. No stones, masses or hydronephrosis. Labs Labs: Laboratory Results - last 24 hr 02/05/22 06:32 Sodium 137 Potassium 3.5 Chloride 92 L Carbon Dioxide 39 H Anion Gap 6 L BUN 70 H D Creatinine 5.00 H Estim Creat Clear Calc 13 Estimated GFR 10 L Glucose 101 Calcium 8.6 Phosphorus 5.0 H Albumin 3.6
--- NOTE | 2022-02-05 13:15 | PM.IMPN ---
Progress Note: A&P Assessment and Plan (1) Rhabdomyolysis: Qualifiers: Rhabdomyolysis type: non-traumatic Qualified Code(s): M62.82 - Rhabdomyolysis Code(s): M62.82 - Rhabdomyolysis Status: Acute Assessment and Plan: Resolving (2) Acute kidney failure: Qualifiers: Acute renal failure type: unspecified Qualified Code(s): N17.9 - Acute kidney failure, unspecified Code(s): N17.9 - Acute kidney failure, unspecified Status: Acute Assessment and Plan: Creatinine continues to improve, down to 5 today from 6.6 yesterday (3) Amphetamine abuse: Code(s): F15.10 - Other stimulant abuse, uncomplicated Status: Acute Assessment and Plan: Long discussion regarding rehab and discontinuing polysubstance abuse (4) Elevated d-dimer: Code(s): R79.89 - Other specified abnormal findings of blood chemistry Status: Acute Assessment and Plan: Likely secondary to the rhabdomyolysis, venous Dopplers were negative (5) Left thigh pain: Code(s): M79.652 - Pain in left thigh Status: Acute Assessment and Plan: Secondary to myositis versus rhabdomyolysis, appreciate Orthopedic surgery consultation, they have signed off, no compartment syndrome noted February 05, 2022: Will re-consult surgery today, continued concerns for compartment syndrome heightened with new onset numbness Subjective Date/time seen: 02/05/22 13:15 Interval history: Patient states her left thigh feels more swollen and more painful today. She is starting to feel little numb in that area. She denies chest pain shortness a breath. No nausea vomiting or diarrhea. No fevers or chills. Other than her left thigh, she feels much better. Review of Systems Review of Systems: Twelve point review of systems was reviewed and is negative except as noted in the HPI Exam Narrative: General: Patient resting comfortably in bed, no acute distress HEENT: Atraumatic, normocephalic, mucous membranes moist CV: Regular rate and rhythm, S1, S2, no murmurs rubs or gallops noted Lungs: Clear to auscultation bilaterally, no rales or crackles noted, no wheezes, good air entry Abdomen: Soft, nontender, nondistended Extremities: Normal to inspection, left thigh with significant swelling and tightness, no erythema, warmth or tenderness, patient states she does have some numbness to palpation Skin: No rashes noted, no lesions or wounds seen Psych: Euthymic, normal affect Neuro: Cranial nerves 2-12 grossly intact, strength 5/5 upper and lower extremities noted Objective Data Vital Signs Vital Signs: Vital Signs - 24 hr 02/04/22 14:00 02/04/22 23:25 02/05/22 05:59 Temperature 97.1 F L 97.3 F L 97.5 F L Pulse Rate 79 62 64 Respiratory Rate 20 22 H 16 Blood Pressure 114/60 120/79 126/76 Pulse Oximetry 96 94 94 Intake/Output Intake/Output: Intake & Output 02/02/22 02/03/22 02/04/22 02/05/22 23:59 23:59 23:59 23:59 Intake Total 3280 5340 540 Output Total 600 3200 750 Balance 2680 2140 -210 Meds/Results Medications: Active Medications Generic Name Dose Route Start Last Admin Trade Name Freq PRN Reason Stop Dose Admin Acetaminophen 650 mg 02/04/22 11:50 Acetaminophen 325 Mg Tablet PO Q6H PRN Mild Pain (1-3) or Fever Baclofen 10 mg 02/03/22 09:00 02/05/22 09:33 Baclofen 10 Mg Tablet PO 10 mg BID JOSHUA Administration Enoxaparin Sodium 30 mg 02/04/22 09:00 02/05/22 09:33 Enoxaparin 30 Mg/0.3 Ml Syringe SUB-Q 30 mg DAILY JOSHUA Administration Polyethylene Glycol 17 gm 02/05/22 09:00 02/05/22 09:33 Polyethylene Glycol 3350 17 Gm Powd.Pack PO 17 gm QAM JOSHUA Administration Tramadol HCl 50 mg 02/04/22 11:50 02/04/22 21:13 Tramadol Hcl (*Crx) 50 Mg Tablet PO 50 mg Q4H PRN Administration Pain Rated 4-6 Radiology Results: ITS Impressions Lower Extremity CT 02/03/22 06:31 IMPRESSION: 1
[2022-02-05 14:46] VITALS: BP 121/74; PULSE 73; RESP 16; TEMP 36.5; O2SAT 95
--- NOTE | 2022-02-05 15:11 | PM.PNGS ---
Progress Note: A&P Assessment and Plan (1) Pain and swelling of left lower extremity: Code(s): M79.605 - Pain in left leg; M79.89 - Other specified soft tissue disorders Status: Acute Assessment and Plan: this is limited to the left thigh. Patient has complaints of pain and tingling are limited to the lateral hip area just lateral to the greater trochanter on the left. Signs of compartment syndrome were again checked - passive flexion of the knee for the anterior compartment, passive extension of the knee for the posterior compartment, and passive abduction of the hip for the medial compartment. Patient had no complaints of pain on these maneuvers which would indicate no evidence of thigh compartment syndrome. Lower leg is not swollen and patient has no complaints of pain on movement of the ankle or the toes whatsoever. (2) Opioid abuse with intoxication with complication: Code(s): F11.129 - Opioid abuse with intoxication, unspecified Status: Acute (3) Acute kidney failure: Qualifiers: Acute renal failure type: unspecified Qualified Code(s): N17.9 - Acute kidney failure, unspecified Code(s): N17.9 - Acute kidney failure, unspecified Status: Acute Subjective Subjective Date/Time Seen: 02/05/22 15:11 Patient reports: still having pain (Lateral left hip) and other ( pain and tingling lateral to left greater trochanter.) Interval history: I was asked to revisit patient as she was having increased pain and more tingling associated with her left thigh. Pain and tingling are in an area on the lateral hip near the greater trochanter. No pain, numbness, or motor dysfunction otherwise in the left leg. Review of Systems Review of Systems: All systems reviewed & are unremarkable except as noted in HPI and below ( HPI) Exam Const: General: cooperative, comfortable, no acute distress, alert, awake and tired appearing Nutritional Appearance: average body habitus Orientation/consciousness: patient oriented x3 Back/Spine/Pelvis: Back: no CVA tenderness, No erythema, No warmth and No back tenderness Extrem: Left lower extremity: hip/thigh ( Painless passive flex/ extend knee, abduct thigh as before) Details: tenderness Location: of the hip ( lateral to greater trochanter) and swelling; no ecchymosis and no deformity Objective Data Vital Signs Vital Signs: Vital Signs - 24 hr 02/04/22 23:25 06/12/22 05:59 02/05/22 14:46 Temperature 36.3 C L 36.4 C L 36.5 C Pulse Rate 62 64 73 Respiratory Rate 22 H 16 16 Blood Pressure 120/79 126/76 121/74 Pulse Oximetry 94 94 95 Intake/Output Intake/Output: Intake & Output 02/02/22 02/03/22 02/04/22 02/05/22 23:59 23:59 23:59 23:59 Intake Total 3280 5340 780 Output Total 600 3200 750 Balance 2680 2140 30 Meds/Results Medications: Active Medications Generic Name Dose Route Start Last Admin Trade Name Freq PRN Reason Stop Dose Admin Acetaminophen 650 mg 02/04/22 11:50 Acetaminophen 325 Mg Tablet PO Q6H PRN Mild Pain (1-3) or Fever Baclofen 10 mg 02/03/22 09:00 02/05/22 09:33 Baclofen 10 Mg Tablet PO 10 mg BID JOSHUA Administration Enoxaparin Sodium 30 mg 02/04/22 09:00 02/05/22 09:33 Enoxaparin 30 Mg/0.3 Ml Syringe SUB-Q 30 mg DAILY JOSHUA Administration Polyethylene Glycol 17 gm 02/05/22 09:00 02/05/22 09:33 Polyethylene Glycol 3350 17 Gm Powd.Pack PO 17 gm QAM JOSHUA Administration Tramadol HCl 50 mg 02/04/22 11:50 02/04/22 21:13 Tramadol Hcl (*Crx) 50 Mg Tablet PO 50 mg Q4H PRN Administration Pain Rated 4-6 Radiology Results: ITS Impressions Lower Extremity CT 02/03/22 06:31 IMPRESSION: 1. Low-attenuation in the left hip adductor muscles and gluteal muscles, consistent with rhabdomyolysis versus myositis. 2. Fat stranding in the retroperitoneum and extraperitoneal pelvis, consistent with edema versus inflammation. Femur X-Ray 02/03
[2022-02-05 19:30] VITALS: BP 124/73; PULSE 67; RESP 16; TEMP 36.3; O2SAT 97
[2022-02-06 06:00] VITALS: BP 126/87; PULSE 65; RESP 14; TEMP 37; O2SAT 97
[2022-02-06] MEDS: polyethylene glycoL 3350 17 GM POWD.PACK PO (10:04)
[2022-02-06] MEDS: BACLOFEN 10 MG TABLET PO ×2 (10:04→16:46)
[2022-02-06] MEDS: ENOXAPARIN 30 MG/0.3 ML SYRINGE SUB-Q (10:04)
--- NOTE | 2022-02-06 11:46 | PM.IMPN ---
Progress Note: A&P Assessment and Plan (1) Rhabdomyolysis: Qualifiers: Rhabdomyolysis type: non-traumatic Qualified Code(s): M62.82 - Rhabdomyolysis Code(s): M62.82 - Rhabdomyolysis Status: Acute Assessment and Plan: Resolving, labs pending for today (2) Acute kidney failure: Qualifiers: Acute renal failure type: unspecified Qualified Code(s): N17.9 - Acute kidney failure, unspecified Code(s): N17.9 - Acute kidney failure, unspecified Status: Acute Assessment and Plan: Creatinine continues to improve, was down to 5 yesterday, pending from today (3) Amphetamine abuse: Code(s): F15.10 - Other stimulant abuse, uncomplicated Status: Acute Assessment and Plan: Long discussion regarding rehab and discontinuing polysubstance abuse (4) Elevated d-dimer: Code(s): R79.89 - Other specified abnormal findings of blood chemistry Status: Acute Assessment and Plan: Likely secondary to the rhabdomyolysis, venous Dopplers were negative (5) Left thigh pain: Code(s): M79.652 - Pain in left thigh Status: Acute Assessment and Plan: Secondary to myositis versus rhabdomyolysis, appreciate Orthopedic surgery consultation, they have signed off, no compartment syndrome noted February 05, 2022: Will re-consult surgery today, continued concerns for compartment syndrome heightened with new onset numbness February 06, 2022: Suspect continued pain is secondary to myositis, will recheck imaging today to confirm resolving since symptoms are worsening Subjective Date/time seen: 02/06/22 11:46 Interval history: Patient states her left thigh feels even more painful to the touch with a sense of numbness and seems more swollen to her. She denies any redness, warmth or trauma to the area. She denies chest pain shortness a breath. No nausea vomiting diarrhea. No fevers or chills. No overnight events noted. Otherwise, she states she is feeling much better. Review of Systems Review of Systems: Twelve point review of systems was reviewed and is negative except as noted in the HPI Exam Narrative: General: Patient resting comfortably in bed, no acute distress HEENT: Atraumatic, normocephalic, mucous membranes moist CV: Regular rate and rhythm, S1, S2, no murmurs rubs or gallops noted Lungs: Clear to auscultation bilaterally, no rales or crackles noted, no wheezes, good air entry Abdomen: Soft, nontender, nondistended Extremities: Normal to inspection, left thigh with significant swelling and tightness, no erythema, warmth or tenderness, patient states she does have some numbness to palpation, pulses intact Skin: No rashes noted, no lesions or wounds seen Psych: Euthymic, normal affect Neuro: Cranial nerves 2-12 grossly intact, strength 5/5 upper and lower extremities noted Const: Other: Appears older than stated age, disheveled, no acute distress, well-developed well-nourished Objective Data Vital Signs Vital Signs: Vital Signs - 24 hr 02/05/22 14:46 02/05/22 19:30 02/06/22 06:00 Temperature 97.7 F 97.3 F L 98.6 F Pulse Rate 73 67 65 Respiratory Rate 16 16 14 Blood Pressure 121/74 124/73 126/87 Pulse Oximetry 95 97 97 Intake/Output Intake/Output: Intake & Output 02/03/22 02/04/22 02/05/22 02/06/22 23:59 23:59 23:59 23:59 Intake Total 3280 5340 1420 400 Output Total 600 3200 1850 875 Balance 2580 3278 -345 -253 Meds/Results Medications: Active Medications Generic Name Dose Route Start Last Admin Trade Name Freq PRN Reason Stop Dose Admin Acetaminophen 650 mg 02/04/22 11:50 Acetaminophen 325 Mg Tablet PO Q6H PRN Mild Pain (1-3) or Fever Baclofen 10 mg 02/03/22 09:00 02/06/22 10:04 Baclofen 10 Mg Tablet PO 10 mg BID JOSHUA Administration Enoxaparin Sodium 30 mg 02/04/22 09:00 02/06/22 10:04 Enoxaparin 30 Mg/0.3 Ml Syringe SUB-Q 30 mg DAILY JOSHUA Administration
[2022-02-06 12:45] LABS: Basophils Absolute Auto 0.1 K/mm3 (0.0-0.1); Basophils Percent Auto 0.6 % (0.2-1.2); Eosinophils Absolute Auto 0.1 K/mm3 (0-0.3); Eosinophils Percent Auto 1.4 % (0-4.4); Hemoglobin 11.9 g/dL (12.0-15.0); Immature Granulocyte Absolute 0.02 K/mm3 (0.00-0.031); Immature Granulocyte Percent A 0.3 % (0-0.5); Lymphocytes Absolute Auto 1.77 K/mm3 (0.9-3.2); Lymphocytes Percent Auto 22.4 % (18.3-44.2); Mean Corpuscular HGB Conc 33.1 g/dl (32-36); Mean Corpuscular Hemoglobin 32.1 pg (26-34); Mean Platelet Volume 9.9 fl (7.4-10.4); Monocytes Absolute Auto 0.6 K/mm3 (0.1-0.6); Monocytes Percent Auto 7.4 % (2.6-8.5); Neutrophils Absolute Auto 5.4 K/mm3 (1.3-6.7); Neutrophils Percent Auto 67.9 % (45.5-73.1); Platelet Count Result 308 k/mm3 (150-375); Red Blood Count 3.71 M/mm3 (4.2-5.4); Red Cell Distribution Width 12.6 % (11.5-14.5); White Blood Count 7.9 K/mm3 (4.5-10.0)
[2022-02-06 13:00] LABS: Alanine Aminotransferase 48 U/L (6-35); Albumin Level 3.2 g/dL (3.5-5.1); Alkaline Phosphatase 22 U/L (38-126); Anion Gap 4 mmol/L (8-16); Aspartate Amino Transferase 51 U/L (14-36); Bilirubin,Total 0.4 mg/dL (0.2-1.3); Blood Urea Nitrogen 47 mg/dL (7-17); Calcium 8.4 mg/dL (8.4-10.2); Carbon Dioxide 38 mmol/L (22-30); Chloride 93 mmol/L (98-107); Estimated CRCL calculation 20 ml/min; Estimated Glomerular Filt Rate 15; Glucose 103 mg/dL (65-110); Phosphorus 4.7 mg/dL (2.5-4.5); Potassium 2.9 mmol/L (3.4-5.0); Sodium 135 mmol/L (137-145)
[2022-02-06 13:04] LABS: Creatine Kinase 228 U/L (30-135)
[2022-02-06 14:00] VITALS: BP 132/78; PULSE 72; RESP 22; TEMP 36.5; O2SAT 97
[2022-02-06] MEDS: traMADol HCL (*CRX) 50 MG TABLET PO (14:17)
--- NOTE | 2022-02-06 15:23 | PM.PNNEP ---
Progress Note: A&P Additional Plan 1. The patient has acute kidney injury. Urine electrolytes are non pre renal but she had already received lots of IV fluids before this was done. CK is down to 809. Urine culture is negative No sign of compartment syndrome. Her creatinine is improving , now even without IV fluids. She is eating well. Home any time from the kidney standpoint. 2. The patient has a swollen left thigh. Venous Dopplers negative. I will let hospitalist proceed with this evaluation. 3. Recreational drug use. Hopefully she will be able to stop again. Subjective Date/time seen: 02/06/22 15:23 Interval history: Patient feels okay. No chest pain or shortness of breath. Exam Narrative: WDWN in NAD skin no rash head ncat lungs clear cor reg no rub abd BS+ nontender and soft ext trace edema in the lower extremities. A little more in her left thigh. Objective Data Vital Signs Vital Signs: Vital Signs - 24 hr 02/05/22 19:30 02/06/22 06:00 02/06/22 10:00 Temperature 36.3 C L 37.0 C Pulse Rate 67 65 Respiratory Rate 16 14 Blood Pressure 124/73 126/87 Pulse Oximetry 97 97 Oxygen Delivery Room Air 02/06/22 14:00 Temperature 36.5 C Pulse Rate 72 Respiratory Rate 22 H Blood Pressure 132/78 Pulse Oximetry 97 Oxygen Delivery Intake/Output Intake/Output: Intake & Output 02/03/22 02/04/22 02/05/22 02/06/22 23:59 23:59 23:59 23:59 Intake Total 3280 5340 1420 640 Output Total 600 3200 1850 875 Balance 2680 2140 -430 -235 Meds/Results Medications: Active Medications Generic Name Dose Route Start Last Admin Trade Name Freq PRN Reason Stop Dose Admin Acetaminophen 650 mg 02/04/22 11:50 Acetaminophen 325 Mg Tablet PO Q6H PRN Mild Pain (1-3) or Fever Baclofen 10 mg 02/03/22 09:00 02/06/22 10:04 Baclofen 10 Mg Tablet PO 10 mg BID JOSHUA Administration Enoxaparin Sodium 30 mg 02/04/22 09:00 02/06/22 10:04 Enoxaparin 30 Mg/0.3 Ml Syringe SUB-Q 30 mg DAILY JOSHUA Administration Polyethylene Glycol 17 gm 02/05/22 09:00 02/06/22 10:04 Polyethylene Glycol 3350 17 Gm Powd.Pack PO 17 gm QAM JOSHUA Administration Tramadol HCl 50 mg 02/04/22 11:50 02/06/22 14:17 Tramadol Hcl (*Crx) 50 Mg Tablet PO 50 mg Q4H PRN Administration Pain Rated 4-6 Radiology Results: ITS Impressions Lower Extremity CT 02/03/22 06:31 IMPRESSION: 1. Low-attenuation in the left hip adductor muscles and gluteal muscles, consistent with rhabdomyolysis versus myositis. 2. Fat stranding in the retroperitoneum and extraperitoneal pelvis, consistent with edema versus inflammation. Femur X-Ray 02/03/22 06:53 IMPRESSION: 1. Moderate left hip osteoarthritis. Venous Doppler Study 02/03/22 09:14 IMPRESSION: 1. No deep venous thrombosis. Renal Ultrasound 02/03/22 10:18 Impression: 1: Unremarkable renal ultrasound. No stones, masses or hydronephrosis. Femur CT 02/06/22 13:39 IMPRESSION: 1. No interval change in right-sided geographic regions of decreased attenuation and multiple left hip abductor and gluteal muscles most consistent with rhabdomyolysis versus myositis. Labs Labs: Laboratory Results - last 24 hr 02/06/22 02/06/22 02/06/22 12:37 12:37 12:37 WBC 7.9 RBC 3.71 L Hgb 11.9 L Hct 36.0 L MCV 97.0 D MCH 32.1 MCHC 33.1 RDW 12.6 Plt Count 308 MPV 9.9 Immature Gran % (Auto) 0.3 Neut % (Auto) 67.9 Lymph % (Auto) 22.4 [place] % (Auto) 7.4 Eos % (Auto) 1.4 Baso % (Auto) 0.6 Lymph # (Auto) 1.77 [place] # (Auto) 0.6 Eos # (Auto) 0.1 Baso # (Auto) 0.1 Abs Immat Gran (auto) 0.02 Absolute Neuts (auto) 5.4 Absolute Nucleated RBC 0.0 Nucleated RBC % 0.0 Sodium 135 L Potassium 2.9 L Chloride 93 L Carbon Dioxide 38 H Anion Gap 4 L BUN 47 H D Creatinine 3.30 H Estim Creat Clear
[2022-02-06 22:00] VITALS: BP 130/67; PULSE 66; RESP 18; TEMP 36.1; O2SAT 99
[2022-02-07 06:00] VITALS: BP 115/71; PULSE 91; RESP 18; TEMP 36.2; O2SAT 100
[2022-02-07 06:45] LABS: Albumin Level 3.5 g/dL (3.5-5.1); Anion Gap 4 mmol/L (8-16); Blood Urea Nitrogen 36 mg/dL (7-17); Calcium 8.6 mg/dL (8.4-10.2); Carbon Dioxide 35 mmol/L (22-30); Chloride 97 mmol/L (98-107); Estimated CRCL calculation 26 ml/min; Estimated Glomerular Filt Rate 20; Glucose 98 mg/dL (65-110); Phosphorus 4.6 mg/dL (2.5-4.5); Potassium 3.3 mmol/L (3.4-5.0); Sodium 136 mmol/L (137-145)
[2022-02-07] MEDS: polyethylene glycoL 3350 17 GM POWD.PACK PO (09:54)
[2022-02-07] MEDS: ENOXAPARIN 30 MG/0.3 ML SYRINGE SUB-Q (09:54)
[2022-02-07] MEDS: POTASSIUM CHLORIDE 20 MEQ TABLET 40 MEQ PO (09:54)
[2022-02-07] MEDS: BACLOFEN 10 MG TABLET PO ×2 (09:54→18:04)
--- NOTE | 2022-02-07 11:25 | PM.PNGS ---
Progress Note: A&P Assessment and Plan (1) Pain and swelling of left lower extremity: Code(s): M79.605 - Pain in left leg; M79.89 - Other specified soft tissue disorders Status: Acute Assessment and Plan: pain and swelling likely due to rhabdomyolysis but no evidence of compartment syndrome. Compartments even softer today than they have been on previous evaluations. Not sure how much discomfort patient is really having as she also would like to be discharged. She is able to ambulate but does so slowly per her report. She can be discharged from my perspective. No surgical follow-up required. Will sign off. (2) Rhabdomyolysis: Qualifiers: Rhabdomyolysis type: non-traumatic Qualified Code(s): M62.82 - Rhabdomyolysis Code(s): M62.82 - Rhabdomyolysis Status: Acute Assessment and Plan: Noted on repeat CT as well. (3) Opioid abuse with intoxication with complication: Code(s): F11.129 - Opioid abuse with intoxication, unspecified Status: Acute Subjective Subjective Date/Time Seen: 02/07/22 11:25 Patient reports: still having pain ( Patient tells me she does not really feel any better. Still some pain in left hip.), tolerating a regular diet, bowel movement, afebrile and other ( Patient also wants to know when she can go home.) Review of Systems Review of Systems: All systems reviewed & are unremarkable except as noted in HPI and below Constitutional: Constitutional: Reports as per HPI, Denies anorexia, Denies chills, Denies fever(s), Denies headache(s) and Denies night sweats Cardiovascular: Cardiovascular: Denies chest pain and Denies dyspnea Respiratory: Respiratory: Denies cough and Denies dyspnea Gastrointestinal: Gastrointestinal: Denies abdominal pain, Denies bloating and Denies nausea Musculoskeletal: Musculoskeletal: Reports as per HPI, Reports numbness ( left hip as before) and Reports stiffness ( left hip) Comments: patient feels left hip and thigh or about the same as before. Integumentary/Breasts: Skin/Breast: Denies lesions and Denies rash Exam Const: General: cooperative, comfortable, no acute distress, alert, awake and tired appearing Nutritional Appearance: average body habitus Extrem: Left lower extremity: hip/thigh ( Knee passive flexion /extension NL; ) Details: tenderness Location: of the proximal upper leg, swelling ( swelling seems to be decreased left thigh, also softer.), abnormal ROM ( Left hip abduction shows tenderness in left groin and anteromedial thigh.) and other ( pain in groin, abductor tendon with left hip abduction. No pain in medial compartment), lower leg ( no swelling or tenderness), ankle ( Full range of motion without pain) and foot ( moves toes and foot without pain or difficulty) Objective Data Vital Signs Vital Signs: Vital Signs - 24 hr 02/06/22 14:00 02/06/22 22:00 02/07/22 06:00 Temperature 36.5 C 36.1 C L 36.2 C L Pulse Rate 72 66 91 Respiratory Rate 22 H 18 18 Blood Pressure 132/78 130/67 115/71 Pulse Oximetry 97 99 100 Oxygen Delivery 02/07/22 09:55 Temperature Pulse Rate Respiratory Rate Blood Pressure Pulse Oximetry Oxygen Delivery Room Air Intake/Output Intake/Output: Intake & Output 02/04/22 02/05/22 02/06/22 02/07/22 23:59 23:59 23:59 23:59 Intake Total 5340 1420 1940 590 Output Total 3200 1850 2675 1400 Balance 2140 -430 -735 -810 Meds/Results Medications: Active Medications Generic Name Dose Route Start Last Admin Trade Name Ishanq PRN Reason Stop Dose Admin Acetaminophen 650 mg 02/04/22 11:50 Acetaminophen 325 Mg Tablet PO Q6H PRN Mild Pain (1-3) or Fever Baclofen 10 mg 02/03/22 09:00 02/07/22 09:54 Baclofen 10 Mg Tablet PO 10 mg BID JOSHUA Administration Enoxaparin Sodium 30 mg 02/04/22 09:00 02/07/22 09:54 Enoxaparin 30 Mg/0.3 Ml Syringe SUB-Q 30 mg DAILY JOSHUA Administration Polyethylene Glycol 17 gm 01/25
--- NOTE | 2022-02-07 13:38 | PM.IMPN ---
Progress Note: A&P Assessment and Plan (1) Rhabdomyolysis: Qualifiers: Rhabdomyolysis type: non-traumatic Qualified Code(s): M62.82 - Rhabdomyolysis Code(s): M62.82 - Rhabdomyolysis Status: Acute Assessment and Plan: Resolving, labs pending for today (2) Acute kidney failure: Qualifiers: Acute renal failure type: unspecified Qualified Code(s): N17.9 - Acute kidney failure, unspecified Code(s): N17.9 - Acute kidney failure, unspecified Status: Acute Assessment and Plan: Creatinine continues to improve, was down to 5 yesterday, pending from today (3) Amphetamine abuse: Code(s): F15.10 - Other stimulant abuse, uncomplicated Status: Acute Assessment and Plan: Long discussion regarding rehab and discontinuing polysubstance abuse (4) Elevated d-dimer: Code(s): R79.89 - Other specified abnormal findings of blood chemistry Status: Acute Assessment and Plan: Likely secondary to the rhabdomyolysis, venous Dopplers were negative (5) Left thigh pain: Code(s): M79.652 - Pain in left thigh Status: Acute Assessment and Plan: Secondary to myositis versus rhabdomyolysis, appreciate Orthopedic surgery consultation, they have signed off, no compartment syndrome noted February 05, 2022: Will re-consult surgery today, continued concerns for compartment syndrome heightened with new onset numbness February 06, 2022: Suspect continued pain is secondary to myositis, will recheck imaging today to confirm resolving since symptoms are worsening February 07, 2022: CT of thigh showed unchanged myositis versus rhabdomyolysis Plan Creatinine came back 2.6 today, CK was over 200, anticipate discharge tomorrow in creatinine is less than 1.5 on oral fluids Subjective Date/time seen: 02/07/22 13:38 Interval history: Patient states she feels much better wants to go home. Still with continued pain in her left thigh, she states this is unchanged. Denies nausea vomiting diarrhea. No chest pain or shortness of breath. Good p.o. intake. Review of Systems Review of Systems: Twelve point review of systems was reviewed and is negative except as noted in the HPI Exam Narrative: General: Patient resting comfortably in bed, no acute distress HEENT: Atraumatic, normocephalic, mucous membranes moist CV: Regular rate and rhythm, S1, S2, no murmurs rubs or gallops noted Lungs: Clear to auscultation bilaterally, no rales or crackles noted, no wheezes, good air entry Abdomen: Soft, nontender, nondistended Extremities: Normal to inspection, left thigh with reduced swelling, pulses intact Skin: No rashes noted, no lesions or wounds seen Psych: Euthymic, normal affect Neuro: Cranial nerves 2-12 grossly intact, strength 5/5 upper and lower extremities noted Objective Data Vital Signs Vital Signs: Vital Signs - 24 hr 02/06/22 14:00 02/06/22 22:00 02/07/22 06:00 Temperature 97.7 F 97 F L 97.1 F L Pulse Rate 72 66 91 Respiratory Rate 22 H 18 18 Blood Pressure 132/78 130/67 115/71 Pulse Oximetry 97 99 100 Oxygen Delivery 02/07/22 09:55 Temperature Pulse Rate Respiratory Rate Blood Pressure Pulse Oximetry Oxygen Delivery Room Air Intake/Output Intake/Output: Intake & Output 02/04/22 02/05/22 02/06/22 02/07/22 23:59 23:59 23:59 23:59 Intake Total 5340 1420 1940 590 Output Total 3200 1850 2675 1400 Balance 2140 -430 -735 -810 Meds/Results Medications: Active Medications Generic Name Dose Route Start Last Admin Trade Name Arpita PRN Reason Stop Dose Admin Acetaminophen 650 mg 02/04/22 11:50 Acetaminophen 325 Mg Tablet PO Q6H PRN Mild Pain (1-3) or Fever Baclofen 10 mg 02/03/22 09:00 02/07/22 09:54 Baclofen 10 Mg Tablet PO 10 mg BID JOSHUA Administration Enoxaparin Sodium 30 mg 02/04/22 09:00 02/07/22 09:54 Enoxaparin 30 Mg/0.3 Ml Syringe SUB-Q 30 mg DAILY JOSHUA Admin
[2022-02-07 15:00] VITALS: BP 116/77; PULSE 75; RESP 16; TEMP 36.8; O2SAT 99
--- NOTE | 2022-02-07 15:10 | PM.PNNEP ---
Progress Note: A&P Additional Plan 1. The patient has acute kidney injury. Urine electrolytes are non pre renal but she had already received lots of IV fluids before this was done. CK is down to 809. Urine culture is negative No sign of compartment syndrome. Her creatinine is improving , now even without IV fluids. she is okay for discharge at any time from the kidney standpoint 2. The patient has a swollen left thigh. Venous Dopplers negative. I will let hospitalist proceed with this evaluation. 3. Recreational drug use. Hopefully she will be able to stop again. Subjective Date/time seen: 02/07/22 15:10 Interval history: Patient feels okay. Eager for discharge. Leg has less swelling but is still uncomfortable. No chest pain or shortness of breath. Exam Narrative: WDWN in NAD skin no rash head ncat lungs clear Bilaterally cor reg no rub abd BS+ nontender and soft ext trace edema in the lower extremities. A little more in her left thigh. Objective Data Vital Signs Vital Signs: Vital Signs - 24 hr 02/06/22 22:00 02/07/22 06:00 02/07/22 09:55 Temperature 36.1 C L 36.2 C L Pulse Rate 66 91 Respiratory Rate 18 18 Blood Pressure 130/67 115/71 Pulse Oximetry 99 100 Oxygen Delivery Room Air Intake/Output Intake/Output: Intake & Output 02/04/22 02/05/22 02/06/22 02/07/22 23:59 23:59 23:59 23:59 Intake Total 5340 1420 1940 590 Output Total 3200 1850 2675 1400 Balance 2140 -430 -735 -810 Meds/Results Medications: Active Medications Generic Name Dose Route Start Last Admin Trade Name Freq PRN Reason Stop Dose Admin Acetaminophen 650 mg 02/04/22 11:50 Acetaminophen 325 Mg Tablet PO Q6H PRN Mild Pain (1-3) or Fever Baclofen 10 mg 02/03/22 09:00 02/07/22 09:54 Baclofen 10 Mg Tablet PO 10 mg BID JOSHUA Administration Enoxaparin Sodium 30 mg 02/04/22 09:00 02/07/22 09:54 Enoxaparin 30 Mg/0.3 Ml Syringe SUB-Q 30 mg DAILY JOSHUA Administration Polyethylene Glycol 17 gm 02/05/22 09:00 02/07/22 09:54 Polyethylene Glycol 3350 17 Gm Powd.Pack PO 17 gm QAM JOSHUA Administration Tramadol HCl 50 mg 02/04/22 11:50 02/06/22 14:17 Tramadol Hcl (*Crx) 50 Mg Tablet PO 50 mg Q4H PRN Administration Pain Rated 4-6 Radiology Results: ITS Impressions Lower Extremity CT 02/03/22 06:31 IMPRESSION: 1. Low-attenuation in the left hip adductor muscles and gluteal muscles, consistent with rhabdomyolysis versus myositis. 2. Fat stranding in the retroperitoneum and extraperitoneal pelvis, consistent with edema versus inflammation. Femur X-Ray 02/03/22 06:53 IMPRESSION: 1. Moderate left hip osteoarthritis. Venous Doppler Study 02/03/22 09:14 IMPRESSION: 1. No deep venous thrombosis. Renal Ultrasound 02/03/22 10:18 Impression: 1: Unremarkable renal ultrasound. No stones, masses or hydronephrosis. Femur CT 02/06/22 13:39 IMPRESSION: 1. No interval change in right-sided geographic regions of decreased attenuation and multiple left hip abductor and gluteal muscles most consistent with rhabdomyolysis versus myositis. Labs Labs: Laboratory Results - last 24 hr 02/07/22 06:12 Sodium 136 L Potassium 3.3 L Chloride 97 L Carbon Dioxide 35 H Anion Gap 4 L BUN 36 H D Creatinine 2.60 H Estim Creat Clear Calc 26 Estimated GFR 20 L Glucose 98 Calcium 8.6 Phosphorus 4.6 H Albumin 3.5
[2022-02-07 21:16] VITALS: BP 124/78; PULSE 69; RESP 18; TEMP 36.3; O2SAT 96
[2022-02-07] MEDS: MELATONIN 5 MG TABLET 10 MG PO (21:18)
[2022-02-08 05:48] VITALS: BP 116/73; PULSE 62; RESP 20; TEMP 36.2; O2SAT 99
[2022-02-08 08:49] LABS: Myoglobin, Urine 46 mcg/L (<28)
[2022-02-08] MEDS: BACLOFEN 10 MG TABLET PO (09:05)
[2022-02-08] MEDS: ENOXAPARIN 30 MG/0.3 ML SYRINGE SUB-Q (09:05)
--- NOTE | 2022-02-08 10:35 | PM.PNNEP ---
Progress Note: A&P Additional Plan 1. The patient has acute kidney injury. Urine electrolytes are non pre renal but she had already received lots of IV fluids before this was done. CK is down to 809. Urine culture is negative No sign of compartment syndrome. Today's creatinine is pending she is okay for discharge at any time from the kidney standpoint She can follow-up with her primary care physician. He can see me in the office of her PCP has any questions. Subjective Date/time seen: 02/08/22 10:35 Interval history: Patient feels okay. Eager for discharge. No chest pain or shortness of Exam Narrative: WDWN in NAD skin no rash head ncat lungs clear Bilaterally cor reg no rub abd BS+ nontender and soft ext trace edema in the lower extremities. A little more in her left thigh. Objective Data Vital Signs Vital Signs: Vital Signs - 24 hr 02/07/22 15:00 02/07/22 20:00 02/07/22 21:16 Temperature 36.8 C 36.3 C L Pulse Rate 75 69 Respiratory Rate 16 18 Blood Pressure 116/77 124/78 Pulse Oximetry 99 96 Oxygen Delivery Room Air 02/08/22 05:48 Temperature 36.2 C L Pulse Rate 62 Respiratory Rate 20 Blood Pressure 116/73 Pulse Oximetry 99 Oxygen Delivery Intake/Output Intake/Output: Intake & Output 02/05/22 02/06/22 02/07/22 02/08/22 23:59 23:59 23:59 23:59 Intake Total 1420 1940 1430 760 Output Total 1850 2675 2000 600 Balance -430 735 -570 160 Meds/Results Medications: Active Medications Generic Name Dose Route Start Last Admin Trade Name Freq PRN Reason Stop Dose Admin Acetaminophen 650 mg 02/04/22 11:50 Acetaminophen 325 Mg Tablet PO Q6H PRN Mild Pain (1-3) or Fever Alprazolam 0.25 mg 02/07/22 21:00 Alprazolam (*Crx) 0.25 Mg Tablet PO ONCE PRN Anxiety Baclofen 10 mg 02/03/22 09:00 02/08/22 09:05 Baclofen 10 Mg Tablet PO 10 mg BID JOSHUA Administration Enoxaparin Sodium 30 mg 02/04/22 09:00 02/08/22 09:05 Enoxaparin 30 Mg/0.3 Ml Syringe SUB-Q 30 mg DAILY JOSHUA Administration Melatonin 10 mg 02/07/22 21:00 02/07/22 21:18 Melatonin 5 Mg Tablet PO 10 mg HS JOSHUA Administration Polyethylene Glycol 17 gm 02/05/22 09:00 02/08/22 09:02 Polyethylene Glycol 3350 17 Gm Powd.Pack PO Not Given QAM JOSHUA Tramadol HCl 50 mg 02/04/22 11:50 02/06/22 14:17 Tramadol Hcl (*Crx) 50 Mg Tablet PO 50 mg Q4H PRN Administration Pain Rated 4-6 Radiology Results: ITS Impressions Lower Extremity CT 02/03/22 06:31 IMPRESSION: 1. Low-attenuation in the left hip adductor muscles and gluteal muscles, consistent with rhabdomyolysis versus myositis. 2. Fat stranding in the retroperitoneum and extraperitoneal pelvis, consistent with edema versus inflammation. Femur X-Ray 02/03/22 06:53 IMPRESSION: 1. Moderate left hip osteoarthritis. Venous Doppler Study 02/03/22 09:14 IMPRESSION: 1. No deep venous thrombosis. Renal Ultrasound 02/03/22 10:18 Impression: 1: Unremarkable renal ultrasound. No stones, masses or hydronephrosis. Femur CT 02/06/22 13:39 IMPRESSION: 1. No interval change in right-sided geographic regions of decreased attenuation and multiple left hip abductor and gluteal muscles most consistent with rhabdomyolysis versus myositis. Labs Labs: Laboratory Results - last 24 hr 02/06/22 14:01 Urine Myoglobin 46 H
[2022-02-08 10:50] LABS: Anion Gap 5 mmol/L (8-16); Blood Urea Nitrogen 25 mg/dL (7-17); Calcium 8.8 mg/dL (8.4-10.2); Carbon Dioxide 32 mmol/L (22-30); Chloride 100 mmol/L (98-107); Estimated CRCL calculation 32 ml/min; Estimated Glomerular Filt Rate 26; Glucose 109 mg/dL (65-110); Potassium 3.2 mmol/L (3.4-5.0); Sodium 137 mmol/L (137-145)
--- NOTE | 2022-02-08 11:46 | PM.DS ---
DS: Admitting Diagnosis Discharge Date February 08, 2022 Admitting Diagnosis Rhabdomyolysis DS: Discharge Diagnosis Discharge Diagnosis (1) Rhabdomyolysis: Qualifiers: Rhabdomyolysis type: non-traumatic Qualified Code(s): M62.82 - Rhabdomyolysis Code(s): M62.82 - Rhabdomyolysis Status: Acute Assessment and Plan: Resolved, treated conservatively. (2) Acute kidney failure: Qualifiers: Acute renal failure type: unspecified Qualified Code(s): N17.9 - Acute kidney failure, unspecified Code(s): N17.9 - Acute kidney failure, unspecified Status: Acute Assessment and Plan: The [facility], follow primary care physician (3) Amphetamine abuse: Code(s): F15.10 - Other stimulant abuse, uncomplicated Status: Acute Assessment and Plan: Cessation counseled (4) Elevated d-dimer: Code(s): R79.89 - Other specified abnormal findings of blood chemistry Status: Acute Assessment and Plan: Likely secondary to the rhabdomyolysis, venous Dopplers were negative (5) Left thigh pain: Code(s): M79.652 - Pain in left thigh Status: Acute Assessment and Plan: Workup unrevealing. Likely related to rhabdomyolysis. DS: Summary Hospital Course Reason for hospitalization: Patient was admitted with acute drug intoxication and found have rhabdomyolysis. Kidney function did worsen and she was given IV fluids and treated conservatively. Subsequent everything resolved drug and alcohol cessation was counseled with the patient. Hospital Course: Will see plan and discharge diagnoses Time Spent with Patient Time attestation: Total time spent providing and/or coordinating discharge services: Exam Narrative: General: Patient resting comfortably in bed, no acute distress HEENT: Atraumatic, normocephalic, mucous membranes moist CV: Regular rate and rhythm, S1, S2, no murmurs rubs or gallops noted Lungs: Clear to auscultation bilaterally, no rales or crackles noted, no wheezes, good air entry Abdomen: Soft, nontender, nondistended Extremities: Normal to inspection, left thigh with reduced swelling, pulses intact Skin: No rashes noted, no lesions or wounds seen Psych: Euthymic, normal affect Neuro: Cranial nerves 2-12 grossly intact, strength 5/5 upper and lower extremities noted Const: Other: Appears older than stated age, disheveled, no acute distress, well-developed well-nourished HENMT: Other: Head is normocephalic atraumatic, pupils are equal and reactive, edentulous in the upper jaw, few remaining teeth that are black and broken off at the gumline in the lower jaw Eyes: Other: Pupils are equal and reactive, no scleral icterus, no conjunctival pallor Neck: Other: No anterior cervical or submandibular lymphadenopathy, no thyromegaly Chest: Other: No tenderness to palpation, equal expansion Resp: Other: Clear to auscultation bilaterally, no increased work of breathing Cardio: Other: Regular rate, regular rhythm, 2+ bilateral radial pedal pulses GI: Other: Soft, nontender, nondistended, positive bowel sounds, no organomegaly : Other: Normal external genitalia, tissue fullness and edema in the left groin Skin: Other: Generalized pallor, non jaundice, numerous tattoos across arms chest and down the right lateral thigh and leg Neuro: Other: Alert oriented, speech is clear, no facial asymmetry, no gross motor deficits noted on limited exam, decreased sensation over the anterior and medial left thigh down to about the level of the knee extending to the mid axillary line laterally Extrem: Other: Weakness on hip flexor on the left, generalized edema of the left anterior medial thigh with [id number] tenderness palpation of the medial thigh, no associated erythema or induration, no pitting edema of the lower extremity, no calf tenderness Psych: Other: Appropriate mood affect, pleasant and cooperative
== END 2022-02-08 11:55 | disposition home or self-care (01) | DRG 351 ==
LOC: ANHED 02-03 03:30 → ANH3MEDSUR 02-03 04:04
PROVIDERS: Internal Medicine Nephrology; Physician Assistant; Student in an Organized Health Care Education/Training Program; Admitting Provider Internal Medicine; Emergency Provider Emergency Medicine; Visit Provider Chiropractor
DX: M62.82 Rhabdomyolysis (principal); F15.10 Other stimulant abuse, uncomplicated; N17.0 Acute kidney failure with tubular necrosis; R79.89 Other specified abnormal findings of blood chemistry; M79.652 Pain in left thigh; F17.210 Nicotine dependence, cigarettes, uncomplicated; F31.9 Bipolar disorder, unspecified; Z86.19 Personal history of other infectious and parasitic diseases; Z79.899 Other long term (current) drug therapy; Z79.1 Long term (current) use of non-steroidal anti-inflammatories (NSAID); F11.129 Opioid abuse with intoxication, unspecified; M79.89 Other specified soft tissue disorders
CPT/HCPCS: 36415; 73552; 73700; 76775; 80048; 80053; 80069; 80076; 80307; 81001; 81025; 82550; 82570; 83874; 84100; 84156; 84300; 84550; 85025; 85027; 85380; 85610; 85730; 86140; 87040; 87086; 87088; 93971; 96360; 96372; 99285; A9270; J0131; J1650; J7030; J7070

== ENCOUNTER 2023-05-02 08:32 | Emergency (ER) | payer OTHER, SELFPAY ==
--- NOTE | ~2023-05-02 | XR_ITS ---
EXAMINATION: XR ribs LT 2V INDICATION: Left chest pain TECHNIQUE: 3 views of the left ribs were obtained. COMPARISON: 03/01/2021 FINDINGS: There is an acute, traumatic, minimally displaced fracture at the lateral aspect of the lef t eighth rib. There also appears to be a nondisplaced fracture at the lateral aspect of the left nint h rib. The left lung is clear. The visualized portions of the right lung are unremarkable. The cardio mediastinal silhouette is normal. There is a tiny left apical pneumothorax. No pleural effusion. IMPRESSION: 1. Minimally displaced left eighth rib fracture and possible nondisplaced left ninth rib fracture. 2. Tiny right apical pneumothorax. These findings were discussed with Nalini Wellington APRN at 0929 hours on 05/02/2023. Reviewed, dictated and finalized at location B. IMPRESSION: 1. Minimally displaced left eighth rib fracture and possible nondisplaced left ninth rib fracture. 2. Tiny right apical pneumothorax. These findings were discussed with Nalini Wellington APRN at 0929 hours on 023.
[2023-05-02 08:41] VITALS: BP 142/95; PULSE 92; RESP 16; TEMP 37.2; O2SAT 98
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
== END 2023-05-02 09:45 | disposition short-term general hospital (02) ==
LOC: EXPCOLL 08:35
PROVIDERS: Emergency Provider Nurse Practitioner Family
DX: S27.0XXA Traumatic pneumothorax, initial encounter (principal); S22.42XA Multiple fractures of ribs, left side, initial encounter for closed fracture; Y04.2XXA Assault by strike against or bumped into by another person, initial encounter; F17.210 Nicotine dependence, cigarettes, uncomplicated
CPT/HCPCS: 71100; 99213; G0463

== ENCOUNTER 2023-05-02 10:05 | Observation (INO) | payer OTHER, SELFPAY ==
[2023-05-02] VITALS (37 sets, daily range): BP systolic 127–162; BP diastolic 85–120; PULSE 64–88; RESP 10–26; TEMP 35.9–36.7; O2SAT 94–100; BMI 20.5
--- NOTE | ~2023-05-02 | XR_ITS ---
EXAMINATION: XR chest 2V DATE: 05/03/2023 07:44 INDICATION: Left pneumothorax TECHNIQUE: PA and lateral views of the chest were obtained. COMPARISON: Chest radiograph dated 05/02/23 FINDINGS: No evident residual pneumothorax. Blunting at the posterior sulci consistent with tiny bilateral pleu ral effusions. No other airspace opacities. The cardiomediastinal silhouette is normal. Minimally dis placed posterolateral left eighth rib fracture. IMPRESSION: 1. Tiny bilateral pleural effusions with resolution of prior left pneumothorax. Reviewed, dictated and finalized at location A.
--- NOTE | ~2023-05-02 | XR_ITS ---
EXAMINATION: XR chest 1V portable DATE: 05/02/2023 12:10 INDICATION: Left pneumothorax. TECHNIQUE: A single frontal view of the chest was obtained. COMPARISON: Left rib radiographs 05/02/2023 FINDINGS: There is mild atelectasis at right lung base. No pneumonia or pleural effusion. There is a tiny left apical pneumothorax. There is a fracture of left eighth rib. IMPRESSION: 1. Stable tiny left apical pneumothorax. 2. Acute left eighth rib fracture. Reviewed, dictated and finalized at location A.
--- NOTE | ~2023-05-02 | CT_ITS ---
EXAMINATION: CT cervical spine wo con DATE: 05/02/2023 13:07 INDICATION: Head injury. TECHNIQUE: Computed tomography (CT) of the cervical spine was performed without intravenous contrast. Automated exposure control and iterative reconstruction technique were employed. The dose-length pro duct was 100.89 mGy-cm. COMPARISON: None FINDINGS: There is a tiny left pneumothorax. There are blebs at right lung apex. There is 11 degrees dextroscoliosis of cervical spine. Vertebral body heights are normal. There is moderately decreased d isc height at C5-C6. The following disc levels are specifically discussed: C2-C3: There is no uncovertebral joint osteoarthritis. There is no facet joint osteoarthritis. There is no neural foraminal stenosis. There is no central canal stenosis. C3-C4: There is no uncovertebral joint osteoarthritis. There is no facet joint osteoarthritis. There is no neural foraminal stenosis. There is no central canal stenosis. C4-C5: There is mild right and moderate left uncovertebral joint osteoarthritis. There is no facet michel int osteoarthritis. There is no neural foraminal stenosis. There is no central canal stenosis. C5-C6: There is mild right and severe left uncovertebral joint osteoarthritis. There is severe left f acet joint osteoarthritis. There is mild left neural foraminal stenosis. There is mild central canal stenosis. C6-C7: There is severe right and moderate left uncovertebral joint osteoarthritis. There is mild bila teral facet joint osteoarthritis. There is mild right neural foraminal stenosis. There is mild centra l canal stenosis. C7-T1: There is no uncovertebral joint osteoarthritis. There is mild lateral facet joint osteoarthrit is. There is no neural foraminal stenosis. There is no central canal stenosis. IMPRESSION: 1. No fracture. 2. Moderate cervical spondylosis. 3. Cervical dextroscoliosis. 4. Tiny left apical pneumothorax. Reviewed, dictated and finalized at location A.
--- NOTE | ~2023-05-02 | CT_ITS ---
EXAMINATION: CT brain wo con INDICATION: Head injury COMPARISON: None TECHNIQUE: Standard unenhanced head CT. The dose-length product (DLP) was 605.33 mGy-cm. The mA was a djusted according to patient size. Iterative reconstruction technique was employed. FINDINGS: No intracranial hemorrhage, acute infarction, or abnormal mass lesion. The ventricles are n ormal. No abnormal mass effect or midline shift. The woo-white matter differentiation is normal. The basal cisterns are patent. The orbits are normal. There is a polyp or mucous retention cyst of the l eft sphenoid sinus. There is minimal opacification posteriorly in the right ethmoidal air cells. IMPRESSION: 1. No acute intracranial abnormality. Reviewed, dictated and finalized at location B.
--- NOTE | ~2023-05-02 | XR_ITS ---
EXAMINATION: XR chest 1V portable Exam Date/Time: 05/02/2023 15:38 CDT HISTORY: Dyspnea; substance abuse; smoker Comparison: 05/02/2023 at 12:00 PM. RESULT: Lines, tubes, and devices: None. Lungs and pleura: Leftward rotation. Stable minimal bibasilar atelectasis. Cardiomediastinal silhouette: Stable. Other: No acute osseous or upper abdominal finding. Acute left eighth rib fracture. IMPRESSION: The tiny left apical pneumothorax is not well visualized and is likely obscured by rotation. No signi ficant interval change. Reviewed, dictated and finalized at location K. IMPRESSION: The tiny left apical pneumothorax is not well visualized and is likely obscured by rotation. No significant interval change.
[2023-05-02] MEDS: LIDOCAINE 5% PATCH 1 PATCH TRANSDERM (13:21)
[2023-05-02] MEDS: oxyCODONE/ACETAMINOPHEN (*CRX) 5-325 MG TABLET 1 TABLET PO (13:21)
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
[2023-05-02 15:43] LABS: Basophils Percent Auto 0.5 % (0.2-1.2); Eosinophils Absolute Auto 0.1 K/mm3 (0-0.3); Eosinophils Percent Auto 1.8 % (0-4.4); Hematocrit 39.5 % (37.0-47.0); Hemoglobin 12.7 g/dL (12.0-15.0); Immature Granulocyte Absolute 0.01 K/mm3 (0.00-0.031); Immature Granulocyte Percent A 0.2 % (0-0.5); Lymphocytes Absolute Auto 1.84 K/mm3 (0.9-3.2); Lymphocytes Percent Auto 27.8 % (18.3-44.2); Mean Corpuscular HGB Conc 32.2 g/dl (32-36); Mean Corpuscular Hemoglobin 31.1 pg (26-34); Mean Corpuscular Volume 96.8 fl (80-100); Mean Platelet Volume 10.8 fl (7.4-10.4); Monocytes Absolute Auto 0.5 K/mm3 (0.1-0.6); Monocytes Percent Auto 7.8 % (2.6-8.5); Neutrophils Absolute Auto 4.1 K/mm3 (1.3-6.7); Neutrophils Percent Auto 61.9 % (45.5-73.1); Platelet Count Result 252 k/mm3 (150-375); Red Blood Count 4.08 M/mm3 (4.2-5.4); Red Cell Distribution Width 14.6 % (11.5-14.5); White Blood Count 6.6 K/mm3 (4.5-10.0)
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
[2023-05-02 16:59] LABS: Anion Gap 7 mmol/L (8-16); Blood Urea Nitrogen 13 mg/dL (7-17); Calcium 9.1 mg/dL (8.4-10.2); Carbon Dioxide 28 mmol/L (22-30); Chloride 102 mmol/L (98-107); Estimated CRCL calculation 101 ml/min; Estimated Glomerular Filt Rate > 60; Glucose 99 mg/dL (65-110); Potassium 3.7 mmol/L (3.4-5.0); Sodium 137 mmol/L (137-145)
--- NOTE | 2023-05-02 17:00 | PC.NURSE ---
Pt friend contact, Ozzie Diez [phone]
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
[2023-05-02] MEDS: ALPRAZolam (*CRX) 0.25 MG TABLET PO (18:01)
[2023-05-02] MEDS: oxyCODONE HCL (*CRX) 5 MG TAB IR PO (18:01)
[2023-05-02] MEDS: LACTATED RINGERS 1,000 ML 125 ML IV CONT (18:02)
[2023-05-02] MEDS: MORPHINE SULFATE (*CRX) 2 MG/ML INJ IV PUSH (21:22)
[2023-05-03] MEDS: MORPHINE SULFATE (*CRX) 2 MG/ML INJ IV PUSH (00:59)
[2023-05-03] MEDS: ALPRAZolam (*CRX) 0.25 MG TABLET PO ×3 (02:12→16:26)
[2023-05-03 06:00] VITALS: BP 126/82; PULSE 54; RESP 16; TEMP 36.3; O2SAT 100
[2023-05-03 06:48] LABS: Alanine Aminotransferase 16 U/L (6-35); Albumin Level 3.4 g/dL (3.5-5.1); Alkaline Phosphatase 27 U/L (38-126); Anion Gap 4 mmol/L (8-16); Aspartate Amino Transferase 22 U/L (14-36); Bilirubin,Total 0.4 mg/dL (0.2-1.3); Blood Urea Nitrogen 12 mg/dL (7-17); Calcium 8.4 mg/dL (8.4-10.2); Carbon Dioxide 28 mmol/L (22-30); Chloride 104 mmol/L (98-107); Estimated CRCL calculation 85 ml/min; Estimated Glomerular Filt Rate > 60; Glucose 87 mg/dL (65-110); Magnesium 2.1 mg/dL (1.6-2.3); Potassium 3.8 mmol/L (3.4-5.0); Sodium 136 mmol/L (137-145)
[2023-05-03 06:57] LABS: Hematocrit 32.7 % (37.0-47.0); Hemoglobin 10.4 g/dL (12.0-15.0); Mean Corpuscular HGB Conc 31.8 g/dl (32-36); Mean Corpuscular Hemoglobin 30.9 pg (26-34); Platelet Count Result 185 k/mm3 (150-375); Red Blood Count 3.37 M/mm3 (4.2-5.4); Red Cell Distribution Width 14.6 % (11.5-14.5); White Blood Count 5.4 K/mm3 (4.5-10.0)
[2023-05-03 07:18] LABS: Hepatitis B Surface Antigen Negative (Negative)
[2023-05-03 07:24] LABS: HAV RESULT Negative (Negative); Hepatitis B Core IgM Result Negative (Negative)
[2023-05-03 07:48] LABS: Hepatitis C Virus Antibody Reactive (Negative)
[2023-05-03 07:55] LABS: HIV 1/2 Ab P24 Ag Result Negative (Negative)
[2023-05-03 09:15] VITALS: O2SAT 100
[2023-05-03] MEDS: HYDROcodone/acetaminophen (*CRX) 5-325 MG TABLET 1 TAB PO ×2 (09:24→14:33)
[2023-05-03 09:43] VITALS: O2SAT 98
[2023-05-03 09:50] VITALS: O2SAT 100
[2023-05-03 11:10] VITALS: O2SAT 97
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
--- NOTE | 2023-05-03 12:18 | PM.PNGS ---
Progress Note: A&P Assessment and Plan (1) Pneumothorax on left: Code(s): J93.9 - Pneumothorax, unspecified Status: Acute Assessment and Plan: Small left apical pneumothorax has resolved without need for chest tube placement. Patient may be discharged home today at discretion of hospitalist service. No need to follow up with General surgery. Subjective Subjective Date/Time Seen: 05/03/23 12:18 Interval history: Patient without complaints of any shortness of breath a day. Now on room air without any issues. Still having expected pain and left chest wall from her fractured ribs but otherwise is doing well. Follow-up chest x-ray this morning shows resolution of the small left apical pneumothorax. Exam Resp: Effort & Inspection: normal respiratory effort Auscultation: clear to auscultation bilaterally Objective Data Vital Signs Vital Signs: Vital Signs - 24 hr 05/02/23 14:09 05/02/23 12:30 05/02/23 12:31 Temperature Pulse Rate 83 79 Respiratory Rate 14 17 Blood Pressure 140/120 H Pulse Oximetry 100 100 100 Oxygen Delivery Nasal Cannula Oxygen Flow Rate 2 05/02/23 12:45 05/02/23 12:46 05/02/23 13:11 Temperature Pulse Rate 79 82 Respiratory Rate 12 16 Blood Pressure 139/105 H Pulse Oximetry 99 100 94 Oxygen Delivery Oxygen Flow Rate 05/02/23 13:15 05/02/23 13:24 05/02/23 13:30 Temperature Pulse Rate 82 88 Respiratory Rate 10 L 26 H Blood Pressure 145/110 H Pulse Oximetry 100 100 99 Oxygen Delivery Oxygen Flow Rate 05/02/23 13:31 05/02/23 13:45 05/02/23 13:47 Temperature Pulse Rate 86 77 76 Respiratory Rate 16 18 13 Blood Pressure 150/119 H 140/104 H Pulse Oximetry 100 100 100 Oxygen Delivery Oxygen Flow Rate 05/02/23 14:00 05/02/23 14:01 05/02/23 14:15 Temperature Pulse Rate 73 79 77 Respiratory Rate 13 17 15 Blood Pressure 139/97 H 162/111 H Pulse Oximetry 100 100 Oxygen Delivery Oxygen Flow Rate 05/02/23 14:16 05/02/23 14:30 05/02/23 14:31 Temperature Pulse Rate 82 80 81 Respiratory Rate 12 16 16 Blood Pressure 153/118 H Pulse Oximetry 100 100 100 Oxygen Delivery Oxygen Flow Rate 05/02/23 14:45 05/02/23 14:46 05/02/23 15:15 Temperature Pulse Rate 80 78 Respiratory Rate 11 L 14 Blood Pressure 140/119 H Pulse Oximetry 100 100 100 Oxygen Delivery Nasal Cannula Oxygen Flow Rate 6 05/02/23 17:10 05/02/23 17:08 05/02/23 17:31 Temperature 36.6 C 35.9 C L Pulse Rate 70 80 Respiratory Rate 18 18 Blood Pressure 140/105 H 152/106 H Pulse Oximetry 98 98 99 Oxygen Delivery Nasal Cannula Oxygen Flow Rate 6 05/02/23 22:00 05/03/23 06:00 05/03/23 09:43 Temperature 36.3 C L 36.3 C L Pulse Rate 70 54 L Respiratory Rate 18 16 Blood Pressure 128/85 126/82 Pulse Oximetry 100 100 98 Oxygen Delivery Nasal Cannula Oxygen Flow Rate 6 Intake/Output Intake/Output: Intake & Output 04/30/23 05/01/23 05/02/23 05/03/23 23:59 23:59 23:59 23:59 Intake Total 1490 Balance 1490 Meds/Results Medications: Active Medications Generic Name Dose Route Start Last Admin Trade Name Freq PRN Reason Stop Dose Admin Acetaminophen 650 mg 05/02/23 17:07 Acetaminophen 325 Mg Tablet PO Q6H PRN Mild Pain (1-3) or Fever Hydrocodone Bitart/Acetaminophen 1 tab 05/02/23 17:07 05/03/23 09:24 Hydrocodone/Acetaminophen (*Crx) 5-325 Mg Tablet PO 1 tab Q6H PRN Administration Pain Rated 4-6 Alprazolam 0.25 mg 05/02/23 17:08 05/03/23 09:31 Alprazolam (*Crx) 0.25 Mg Tablet PO 0.25 mg TID PRN Administration Anxiety Morphine Sulfate 2 mg 05/02/23 17:07 05/03/23 00:59 Morphine Sulfate (*Crx) 2 Mg/Ml Inj IV PUSH 2 mg Q4H PRN Administration Pain Rated 7-10 Ondansetron HCl 4 mg 05/02/23 17:18 Ondansetron Inj 4 Mg/2 Ml Vial IV PUSH Q6H PRN Nausea And Vomiting Radiology Results: I
[2023-05-03 14:00] VITALS: BP 124/83; PULSE 64; RESP 16; TEMP 36.8; O2SAT 98
== END 2023-05-03 16:30 | disposition home or self-care (01) ==
LOC: ANHED 14:33 → ANH3MEDSUR 16:29
PROVIDERS: Physician Assistant; Admitting Provider Student in an Organized Health Care Education/Training Program; Emergency Provider Preventive Medicine Aerospace Medicine; Visit Provider Student in an Organized Health Care Education/Training Program
DX: J93.9 Pneumothorax, unspecified (principal); S22.32XA Fracture of one rib, left side, initial encounter for closed fracture; S00.83XA Contusion of other part of head, initial encounter; Y09 Assault by unspecified means; K75.2 Nonspecific reactive hepatitis; Z11.4 Encounter for screening for human immunodeficiency virus [HIV]; F31.9 Bipolar disorder, unspecified; M47.812 Spondylosis without myelopathy or radiculopathy, cervical region; M41.82 Other forms of scoliosis, cervical region; F17.210 Nicotine dependence, cigarettes, uncomplicated; F10.90 Alcohol use, unspecified, uncomplicated; F12.10 Cannabis abuse, uncomplicated; F11.10 Opioid abuse, uncomplicated; F15.10 Other stimulant abuse, uncomplicated
CPT/HCPCS: 36415; 70450; 71045; 71046; 71100; 72125; 80048; 80053; 80074; 83735; 85025; 85027; 86703; 87522; 99285; A9270; G0378; G0379; G0432; J2270; J7120

== ENCOUNTER 2024-01-17 11:30 | Emergency (ER) | payer OTHER, SELFPAY ==
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
[2024-01-17 11:44] VITALS: BP 122/80; PULSE 104; RESP 16; TEMP 37.4; O2SAT 99
== END 2024-01-17 11:53 | disposition home or self-care (01) ==
PROVIDERS: Emergency Provider Nurse Practitioner Family
DX: N30.01 Acute cystitis with hematuria (principal); B96.20 Unspecified Escherichia coli [E. coli] as the cause of diseases classified elsewhere; F17.210 Nicotine dependence, cigarettes, uncomplicated
CPT/HCPCS: 81003; 87077; 87086; 87088; 87186; 99213; G0463

== ENCOUNTER 2024-02-27 14:19 | Emergency (ER) | payer OTHER, SELFPAY ==
[2024-02-27 14:27] VITALS: BP 106/68; PULSE 74; RESP 16; TEMP 37; O2SAT 98
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
== END 2024-02-27 15:08 | disposition home or self-care (01) ==
PROVIDERS: Emergency Provider Nurse Practitioner
DX: R60.9 Edema, unspecified (principal); F17.210 Nicotine dependence, cigarettes, uncomplicated
CPT/HCPCS: 99211; G0463

== ENCOUNTER 2024-06-23 01:45 | Emergency (ER) | payer OTHER, SELFPAY ==
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
--- NOTE | ~2024-06-23 | XR_ITS ---
AP and oblique views of the right ribs, and PA and lateral chest radiographs Clinical History: Pain Findings: There are acute, minimally displaced fractures of right seventh, eighth, and ninth ribs.. L ungs are clear, without focal consolidation or pleural effusion. Cardiomediastinal contour is within normal limits. Soft tissues are unremarkable. Impression: Acute fractures of the right seventh, eighth, and ninth ribs. Clear lungs. No pneumothorax. Reviewed, dictated and finalized at location [facility]. Impression: Acute fractures of the right seventh, eighth, and ninth ribs. Clear lungs. No pneumothorax.
[2024-06-23 01:45] VITALS: BP 149/97; PULSE 130; RESP 20; TEMP 36.5; O2SAT 98
[2024-06-23 02:45] VITALS: RESP 17; O2SAT 97
[2024-06-23 02:47] VITALS: BP 119/79; PULSE 95; RESP 17; O2SAT 95
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
[2024-06-23] MEDS: HYDROcodone/acetaminophen (*CRX) 5-325 MG TABLET 1 TAB PO (03:01)
--- NOTE | 2024-06-23 03:03 | PC.NURSE ---
Patient taken to CT via w/c at this time.
[2024-06-23] MEDS: LORazepam (*CRX) 0.5 MG TABLET PO (04:12)
[2024-06-23] MEDS: AMOXICILLIN/CLAVULANATE K 875-125 MG TAB 1 TABLET PO (04:14)
[2024-06-23] MEDS: CLINDAMYCIN HCL 150 MG CAP 300 MG PO (04:15)
[2024-06-23 04:29] VITALS: BP 130/99; PULSE 75; RESP 17; O2SAT 100
== END 2024-06-23 04:32 | disposition home or self-care (01) ==
PROVIDERS: Emergency Provider Student in an Organized Health Care Education/Training Program
DX: S02.40CA Maxillary fracture, right side, initial encounter for closed fracture (principal); S02.40EA Zygomatic fracture, right side, initial encounter for closed fracture; S02.32XA Fracture of orbital floor, left side, initial encounter for closed fracture; H11.30 Conjunctival hemorrhage, unspecified eye; S30.0XXA Contusion of lower back and pelvis, initial encounter; S22.41XA Multiple fractures of ribs, right side, initial encounter for closed fracture; Y04.0XXA Assault by unarmed brawl or fight, initial encounter; F31.9 Bipolar disorder, unspecified; F17.210 Nicotine dependence, cigarettes, uncomplicated
CPT/HCPCS: 70450; 70480; 71046; 71100; 99284; A9270